=== PATIENT | female | born 1945 | race Caucasian/White ===

== ENCOUNTER → 2017-07-11 | Outpatient (CLI) | payer BC ==
[~2017-07-11] MED LIST: ASCA500 PO; B-COTAB18 PO; CALC-342 PO; CHLO0.12 MT; CHOL2000 PO; CINN500T PO; GLUC750T18 PO; HYDR25TA4 PO; MELO7.5T5 PO; METH1CAP PO; METO50TA17 PO; MULT-506 PO; OMEG10007 PO; OMEP20CA9 PO; POLYSOL OP; RIVA1TAB4 PO; VITA400C15 PO
[2017-07-12 06:08] LABS: ESTIMATED AVERAGE GLUCOSE 134 mg/dl; HA1C FLAG Normal (Normal)
== END | disposition home or self-care (01) ==
LOC: C.LABPVFM 16:02
PROVIDERS: ATTEND Nurse Practitioner
DX: R73.01 Impaired fasting glucose (principal)

== ENCOUNTER → 2017-07-18 | Outpatient (CLI) | payer BC | END | disposition home or self-care (01) | LOC: C.PAPS 09:58 | PROVIDERS: ATTEND Obstetrics & Gynecology | DX: Z01.419 Encounter for gynecological examination (general) (routine) without abnormal findings (principal); N87.1 Moderate cervical dysplasia ==

== ENCOUNTER → 2018-01-20 | Outpatient (CLI) | payer BC ==
--- NOTE | 2018-01-20 16:05 | DIAGNOSTIC IMAGING REPORT ---
L-SPINE MIN 4 VIEWS ROUTINE HISTORY: Pain PAIN OF BACK AND RIGHT LOWER EXTREMITY COMPARISON: None. FINDINGS: Evidence for a L5-S1 laminectomy and fusion. Minimal grade 1 anterolisthesis L5 on S1. Potential osteolysis of components of the superior endplate of S1. Mild degenerative scoliosis. Degenerative disc change throughout all remaining components of the low thoracic and lumbar region. No evidence for compression deformity. IMPRESSION: Considerable degenerative change throughout the entire lumbar region. L5-S1 laminectomy and fusion with disc spacer placement. Probable osteolysis superior endplate S1. The above report was generated using voice recognition software. It may contain grammatical, syntax or spelling errors. Electronically signed by: Arnulfo Atkinson M.D. 01/20/2018 4:04 PM Dictated Date/Time: 01/20/2018 4:02 PM
== END | disposition home or self-care (01) ==
LOC: C.RADPV 15:25
PROVIDERS: ATTEND Family Medicine
DX: M54.9 Dorsalgia, unspecified (principal)

== ENCOUNTER 2019-03-12 05:11 | Inpatient (IN) ==
--- OUTSIDE RECORDS SUMMARY | 2019-03-12 05:14 | External Medical Summary | Continuity of Care Document ---
:1945 Author Name Alina Dunn, Provider Address Unavailable Unavailable , Care Team Providers Name Role Phone Lori Bonilla Unavailable [email or web address] Markus Dunn, Dee Unavailable [email or web address] LORI WANG Unavailable Unavailable Diego Alexandra M.D. Unavailable [email or web address] Shaggy PIERCE M.D., Jessica Unavailable [email or web address] Unavailable Unavailable Unavailable Assessments Assessed Problems:Allergic rhinitisRash/skin eruption Problems Trigeminal neuralgia (350.1) (G50.0) Irritable bowel syndrome (564.1) (K58.9) History of Moderate cervical dysplasia (622.12) (N87.1) Status: Resolved Obesity (278.00) (E66.9) Esophageal reflux (530.81) (K21.9) Influenza vaccine needed (V04.81) (Z23) Paroxysmal atrial fibrillation (427.31) (I48.0) History of Tubular adenoma of colon (211.3) (D12.6) Status: Resolved Hyperlipidemia (272.4) (E78.5) URTI (acute upper respiratory infection) (465.9) (J06.9) Arthralgia, lumbar spine (724.2) (M54.5) Obstructive sleep apnea (327.23) (G47.33) Hip pain, chronic, right (719.45) (M25.551) Sinus pressure (478.19) (J34.89) Discoloration of skin of foot (709.00) (L81.9) Lightheadedness (780.4) (R42) Blurry vision (368.8) (H53.8) Fatigue (780.79) (R53.83) Unsteady gait (781.2) (R26.81) Lumbosacral radiculopathy at L4 (724.4) (M54.17) Pains, foot (729.5) (M79.673) Neuropathic pain, leg, bilateral (356.9) (G57.93) Vitamin D deficiency (268.9) (E55.9) Polyneuropathy (356.9) (G62.9) Hiatal hernia (553.3) (K44.9) Umbilical hernia (553.1) (K42.9) Impaired fasting glucose (790.21) (R73.01) Arthralgia of multiple sites (719.49) (M25.50) Encounter for routine gynecological examination (V72.31) (Z0 1.419) Diverticulosis of colon (562.10) (K57.30) Pain of back and right lower extremity (724.5) (M54.9) Rectocele (618.04) (N81.6) Encounter for medication refill (V68.1) (Z76.0) Rash/skin eruption (782.1) (R21) Allergic rhinitis (477.9) (J30.9) Hypertension (401.9) (I10) Allergies and Adverse Reactions Adhesive Bandages MISC (Allergy) Codeine Derivatives (Allergy) Morphine Derivatives (Allergy) Medications Chlorhexidine Gluconate 0.12 % Mouth/Thr oat Solution; RINSE MOUTH WITH 15ML (1 CAPFUL) FOR 30 SECONDS AM AND PM AFTER TOOTHBRUSHING. EXPECTORATE AFTER RINSING, DO NOT SWALLOW Start: 23-Jan-2016 Refills: 0 GNP Vitamin C 500 MG Oral Tablet; TAKE 1 TABLET 3 TIMES UZMA Y. Refills: 0 B Complex Oral Capsule; TAKE 1 CAPSULE Daily Refills: 0 Meloxicam 7.5 MG Oral Tablet; TAKE ONE TABLET BY MOUTH ONCE DAILY AFTER A MEAL Shaun Aparicio Start: 03-Jan-2013 Quantity: 30 Refills: 5 Loratadine 10 MG Oral Capsule; 1 tab daily for allergies MEL Jovel Start: 09-Jan-2019 Quantity: 30 Refills: 4 Triamcinolone Acetonide 0.1 % External C ream; APPLY SPARINGLY AND MASSAGE IN TWICE DAILY. MEL Wang Start: 09-Jan-2019 Quantity: 1 30 GM Tube Refills: 1 Fluticasone Propionate 50 MCG/ACT Nasal Suspension; USE 2 SPRAYS IN EACH NOSTRIL AT BEDTIME Shaun Aparicio Start: 19-Dec-2018 Quantity: 1 9.9 ML Bottle Refills: 0 Lisinopril 5 MG Oral Tablet; TAKE 1 TABLET IN THE MORNING Start: 19-Dec-2018 Refills: 0 45 Tablet Bottle traMADol HCl - 50 MG Oral Tablet; TAKE 1 -2 TABLETS BY MOUTH 3 TIMES A DAY NEEDED FOR LOWER EXTREMITY PAIN. Shaun Aparicio Start: 20-Jan-2018 Quantity: 30 Refills: 0 Omeprazole 20 MG Oral Capsule Delayed Re lease; TAKE ONE CAPSULE BY MOUTH ONCE DAILY MEL Wang Start: 22-Dec-2012 Quantity: 30 Refills: 5 Metoprolol Tartrate 50 MG Oral Tablet; t estela 1/2 tablet in the am and 1 tablet in the pm Quantity: 60 Refills: 5 Glucosamine-Chondroitin Oral Tablet; Take 1 tablet twice victoria ly Refills: 0 Xarelto 20 MG Oral Tablet; Take 1 tablet daily MEL Wang Start: 11-May-2015 Quantity: 30 Refills: 5 Vitamin D3 2000 UNIT Oral Capsule; Take one capsule daily. Quantity: 30 Refills: 3 Probiotic Oral Capsule; USE DIRECTED. Start: 11-Jul-2017 Refills: 0 traMADol HCl - 50 MG Oral Tablet; TAKE 1 TABLET BY MOUTH EVERY 8 HOURS NEEDED. Start: 21-Aug-2017 Quantity: 30 Refills: 0 oxyCODONE HCl - 5 MG Oral Tablet; TAKE 1 /2 - 1 TABLET EVERY 6 HOURS NEEDED FOR PAIN. Start: 21-Aug-2017 Quantity: 20 Refills: 0 Ondansetron 4 MG Oral Tablet Disintegrating; 1 tab every 8 h rs as needed Start: 21-Aug-2017 Refills: 0 hydroCHLOROthiazide 25 MG Oral Tablet; TAKE 1 TABLET DAILY. Start: 21-Aug-2017 Quantity: 30 Refills: 1 Calcium 600 + D 600-200 MG-UNIT Oral Tablet; TAKE 1 TABLET D AILY. Start: 21-Aug-2017 Refills: 0 Metamucil 48.57 % Oral Powder; USE DIRECTED. Start: 11-Jul-2017 Refills: 0 MSM TABS; once daily Refills: 0 Multi-Vitamin Oral Tablet; TAKE 1 TABLET DAILY. Quantity: 90 Refills: 1 Systane 0.4-0.3 % Ophthalmic Solution; I NSTILL ONE DROP IN EACH EYE NEEDED DAILY. Start: 20-Apr-2016 Refills: 0 Procedures History of Tubal Ligation Status: Comple kingsley History of Dilation And Curettage Status : Completed History of Oral Surgery Tooth Extraction Status: Completed History of Gallbladder Surgery Status: C ompleted History of Cervical Conization Loop Electrode Excision Status: Completed History of Complete Colonoscopy Status: Completed History of Back Surgery Status: Complete d History of Cervical Vertebral Fusion Sta tus: Completed Influenza vaccine needed History of Cataract Surgery Status: Comp leted Immunizations Pneumococcal polysaccharide vaccine, 23 valent On: 1 Influenza On: 12-Sep-2012 11:48 Lot #: [id number], [employer] PASTEUR Influenza On: 28-Aug-2013 11:12 Lot #: [id number], SAN[employer]FI PASTEUR Fluzone High-Dose Intramuscular Suspension On: 13-Aug-2014 8: 39 Lot #: [id number], [employer]OFI PASTEUR Influenza On: 04-Oct-2015 Fluzone High-Dose Intramuscular Suspension On: 01-Oct-2016 1 5:09 Lot #: [id number], [employer]OFI PASTEUR Fluzone High-Dose Intramuscular Suspension On: 30-Jul-2017 1 5:26 Lot #: [id number], SANOFI PASTEUR Prevnar 13 Intramuscular Suspension On: 30-Jul-2017 15:27 Lot #: [id number], PFIZER [place] Fluzone High-Dose Intramuscular Suspension On: 21-Aug-2018 1 5:52 Lot #: [id number], SANOFI PASTEUR Family History Sister Family history of Colon Cancer (V16.0) Status: Active Family history of Coronary Artery Disease (V17.49) Status: A ctive Family history of Coronary Artery Disease (V17.49) Status: A ctive Family history of cerebrovascular accident (V17.1) (Z82.3) S tatus: Active Social History - Smoking Status Unknown if ever smoked Never smoker Interventions Medication ChangesLoratadine 10 MG Oral Capsule - StartTriamcinolone Acetonide 0.1 % External Cream - Start Plan of Treatment Planned Observations Planned Goals not documented Results No Known Results Results not documented Encounters Appointment; Dee Aparicio M.D. 19-Dec-2018 16:00 Encounter Diagnosis: Problem not documented Appointment; Nurse Luis E 21-Aug-2018 14:15 Encounter Diagnosis: Problem not documented Appointment; Dee Aparicio M.D. 20-Jan-2018 14:45 Encounter Diagnosis: Problem not documented Appointment; Nurse Luis E 30-Jul-2017 15:00 Encounter Diagnosis: Problem not documented Appointment; Ary Alexandra M.D. 18-Jul-2017 13:45 Encounter Diagnosis: Problem not documented Appointment; Lori Wang CRNP 11-Jul-2017 15:30 Encounter Diagnosis: Problem not documented Appointment; Lori Wang CRNP 09-Jan-2019 13:00 Encounter Diagnosis: Problem not documented
[2019-03-12 05:53] LABS: Basophils # (auto) 0.03 K/uL (0-0.2); Basophils % (auto) 0.6 %; Eosinophils # (auto) 0.12 K/uL (0-0.5); Eosinophils % (auto) 2.2 %; Hematocrit (blood only) 41.2 % (37-47); Hemoglobin 14.7 g/dL (12.0-16.0); Immature Granulocytes # (auto) 0.01 K/uL (0.00-0.02); Immature Granulocytes % (auto) 0.2 %; Lymphocytes % (auto) 40.8 %; Mean Corpuscular Hgb Conc 35.7 g/dL (32-36); Mean Corpuscular Volume 87.5 fL (80-100); Mean Platelet Volume 9.6 fL (7.4-10.4); Monocytes # (auto) 0.58 K/uL (0.11-0.59); Monocytes % (auto) 10.8 %; Neutrophils # (auto) 2.45 K/uL (1.4-6.5); Neutrophils % (auto) 45.4 %; Platelet Count 239 K/uL (130-400); RDW Coefficient of Variation 13.2 % (11.5-14.5); RDW Standard Deviation 42.3 fL (36.4-46.3); Red Blood Count 4.71 M/uL (4.2-5.4); White Blood Count 5.39 K/uL (4.8-10.8)
[2019-03-12 06:03] LABS: INR 1.1 (0.9-1.1); Partial Thromboplastin Ratio 1.1; Partial Thromboplastin Time 29.1 Seconds (21.0-31.0); Prothrombin Time 11.2 Seconds (9.0-12.0)
[2019-03-12 06:07] LABS: Albumin Level 3.7 gm/dl (3.4-5.0); Aspartate Aminotransferase 19 U/L (15-37); BUN Creatinine Ratio 17.8 (10-20); Blood Urea Nitrogen 19 mg/dl (7-18); Calcium 9.3 mg/dl (8.5-10.1); Carbon Dioxide 28 mmol/L (21-32); Chloride 103 mmol/L (98-107); Creatinine Clr Calc Pharmacy 55.2 ml/min; Est GFR (African American) 59.9; Est GFR (Non-African American) 51.7; Glucose 132 mg/dl (70-99); Magnesium 2.1 mg/dl (1.8-2.4); Potassium 3.8 mmol/L (3.5-5.1); Sodium 137 mmol/L (136-145)
[2019-03-12 06:22] LABS: Alanine Aminotransferase 26 U/L (12-78); Alkaline Phosphatase 54 U/L (45-117); Bilirubin,Total 0.3 mg/dl (0.2-1); Globulin 3.6 gm/dl (2.5-4.0); Total Protein 7.3 gm/dl (6.4-8.2); Troponin I < 0.015 ng/ml (0-0.045)
[2019-03-12] MEDS ORDERED: METOPROLOL TARTRATE 1 MG/ML VIAL IV STA (06:26)
--- NOTE | 2019-03-12 06:28 | XRay Report ---
XR chest 1V portable CLINICAL HISTORY: chest pain/palpitations dyspnea COMPARISON STUDY: 11/04/2015 FINDINGS: Moderate cardiomegaly. Lungs are clear. Diaphragms smooth. IMPRESSION: Moderate cardiomegaly. Otherwise negative study. The above report was generated using voice recognition software. It may contain grammatical, syntax or spelling errors. Electronically signed by: Arnulfo Atkinson M.D. 03/12/2019 6:27 AM
[2019-03-12 07:22] LABS: Appearance Urine Clear (Clear); Bilirubin Urine Negative (Negative); Blood Urine Negative (Negative); Color Urine Yellow; Glucose Urine UA Negative (Negative); Ketones Urine Negative (Negative); Leukocyte Esterase Urine Negative (Negative); Nitrite Urine Negative (Negative); Protein Urine Negative (Negative); Specific Gravity Urine 1.011 (1.000-1.030); Urobilinogen Urine Negative (Negative); pH Urine 7.5 (4.5-7.5)
[2019-03-12] MEDS: dilTIAZem HCl 125 MG in DEXTROSE 5% 100 ML IV SCH ×2 (07:44→19:58)
[2019-03-12] MEDS ORDERED: ONDANSETRON INJ 2 MG/ML 2 ML VIAL IV PRN (09:25)
[2019-03-12] MEDS ORDERED: ARTIFICIAL TEARS OP PRN (09:25)
[2019-03-12] MEDS ORDERED: GLUCOSAMINE SULFATE 1500 MG PO SCH (09:25)
[2019-03-12] MEDS ORDERED: ACETAMINOPHEN 325 MG TAB PO PRN (09:25)
[2019-03-12] MEDS ORDERED: CHONDROITIN SULFATE A SODIUM 1200 MG PO SCH (09:25)
[2019-03-12] MEDS ORDERED: METHYLSULFONYLMETHANE 1000 MG PO SCH (09:25)
[2019-03-12] MEDS ORDERED: NON-FORMULARY MEDICATION (Cinnamon Bark [Cinnamon] 1,000 MG) PO SCH (09:25)
--- NOTE | 2019-03-12 09:38 | History & Physical Report ---
Date of Service March 12, 2019 Assessment & Plan (1) Atrial flutter: has a long history of afib, rates controlled on Metoprolol 25mg qAM and 50mg qPM anticoagulated on Xarelto presents with aflutter, rates 135-140 awoke at 4am with symptoms, felt well yesterday experienced some chest pain, palpitations this morning started on Cardizem drip, will give bolus of 10mg IV since HR is 140 and not budging had some mild chest pain, will cycle troponin q8 x 2 more sets, first trop was negative (2) Palpitations: due to aflutter (3) HTN (hypertension): BP stable, will continue Metoprolol and Cardizem drip hold HCTZ, hold Lisinopril (4) Afib: afib x 10 years, this is only the 4th time she has been hospitalized follows with Dr. Alex chronically (5) GERD (gastroesophageal reflux disease): History of Present Illness Chief Complaint: I was having palpitations Primary Care Provider: MEL Leigh 73 yo female with history of atrial fibrillation, normally well controlled on metoprolol and anticoagulated on Xarelto, presented to the ED this morning for palpitations and some mild chest pressure. She said she also experienced some light headedness. She says she woke up with the symptoms around 4am. She felt well yesterday, no issues at all. She waited until 430 and the palpitations did not go away so she woke her and he brought her to the ED. She was found to be in atrial flutter with rates 135-140. She was given an extra dose of metoprolol and started on Cardizem drip. HR did not improve. Dr. Alex, her commodity loan clerk, was contacted and he recommended admission. Patient says that she has had atrial fibrillation since 2008. Typically very well controlled, only fourth time she has been hospitalized for rate control in the past 10 years. Compliant with her medications. Allergies Allergy/AdvReac Type Severity Reaction Status Date / Time adhesive Allergy Mild redness/swe Verified 03/12/19 05:42 lling codeine Allergy Mild vomiting Unverified 03/12/19 05:42 morphine Allergy Mild Vomiting Verified 03/12/19 05:42 Home Medications Home Medications Medication Instructions Recorded Confirmed Type Womens Probiotic 1 dose PO DAILY 03/12/19 03/12/19 History ascorbic acid (vitamin C) [Vitamin 1,000 mg PO TID 03/12/19 03/12/19 History C] calcium carbonate-vitamin D3 1 tab PO BID 03/12/19 03/12/19 History [Caltrate with Vitamin D3] chlorhexidine gluconate 15 ml PO HS 03/12/19 03/12/19 History cholecalciferol (vitamin D3) 2,000 unit PO DAILY 03/12/19 03/12/19 History [Vitamin D3] chondroitin sulfate A sodium 1,200 mg PO BID 03/12/19 03/12/19 History cinnamon bark [Cinnamon] 1,000 mg PO TID 03/12/19 03/12/19 History glucosamine sulfate [Glucosamine] 1,500 mg PO BID 03/12/19 03/12/19 History hydrochlorothiazide 25 mg PO DAILY 03/12/19 03/12/19 History lidocaine HCl [Aspercreme 1 applic TOPICAL BID PRN 03/12/19 03/12/19 History (lidocaine)] lisinopril 5 mg PO DAILY 03/12/19 03/12/19 History meloxicam 7.5 mg PO DAILY 03/12/19 03/12/19 History methylsulfonylmethane [MSM] 1,000 mg PO DAILY 03/12/19 03/12/19 History metoprolol tartrate 25 mg PO DAILY 03/12/19 03/12/19 History metoprolol tartrate 50 mg PO QPM 03/12/19 03/12/19 History multivitamin 1 tab PO DAILY 03/12/19 03/12/19 History omega 2-krb-uri-fish oil [Fish Oil] 1 cap PO DAILY 03/12/19 03/12/19 History omeprazole 20 mg PO DAILY 03/12/19 03/12/19 History propylene glycol [Systane Balance] 1 drp OPHTHALMIC (EYE) BID PRN 03/12/19 03/12/19 History psyllium husk [Metamucil] 2 tbsp PO HS 03/12/19 03/12/19 History rivaroxaban [Xarelto] 20 mg PO PM 03/12/19 03/12/19 History vitamin B complex 1 cap PO DAILY 03/12/19 03/12/19 History vitamin E 400 unit PO DAILY 03/12/19 03/12/19 History Past Med/Surg History Medical History Atrial flutter (Acute) GERD (gastroesophageal reflux disease) (Chronic) Chronic anticoagulation on xarelto Hiatal hernia Sleep apnea with cpap Spinal stenosis Vocal cord polyp Atrial fibrillation paroxysmal atrial fibrillation in 2009, 01/2015 and 10/2015 HTN (hypertension) Non-smoker Surgical History No pertinent past surgical history S/P hip replacement right Family History Sister Hemorrhagic stroke Mother Hemorrhagic stroke Social History Preferred Language: Martiniquais Communication Ability: Effective [employer]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 Beliefs That Will Affect Care: None Current Living Situation: Spouse Other Information That Helps Us Care for You: No Feels Safe at Home: Yes Safety Concerns: Feels Safe At This Time Smoking Status: Never smoker Hx Alcohol Use: No Hx Substance Use: No Review of Systems Review of Systems: All systems reviewed & are unremarkable except as noted in HPI & below Constitutional: no fever, no chills, no sweats, no fatigue and no weakness Respiratory: no cough and no dyspnea Cardiovascular: + chest pain and + palpitations; no chest pain at rest, no chest pain with activity, no dyspnea, no dyspnea at rest, no orthopnea, no syncope and no edema Gastrointestinal: no abdominal pain, no nausea, no vomiting, no constipation and no diarrhea/loose stools Genitourinary: no dysuria, no difficulty urinating, no urinary frequency, no urinary hesitancy and no urinary urgency Musculoskeletal: no back pain and no neck pain Physical Exam Constitutional: WD/WN, vitals as above Eyes: PERRL, conjunctivae normal, anicteric sclerae ENMT: external ear and nose normal, oropharynx normal Neck: trachea midline, no thyromegaly Respiratory: normal respiratory effort, lungs clear to auscultation Cardiovascular: Rate/Rhythm: regular rate and + tachycardic Heart Sounds: normal S1 and normal S2; no murmur Vessels: normal peripheral pulses Extremities: no edema Gastrointestinal (Abdomen): normal bowel sounds, soft, nontender, no hepatosplenomegaly Musculoskeletal: no cyanosis or clubbing, extremities motor strength 5/5 Skin: no rashes, warm and dry Neurologic: patellar DTR's 2+ bilat, sensation intact and PERRL, EOMI, accommodation nl, no face palsy, no dysarthria Psychiatric: A+Ox3, euthymic affect Lymphatic: no cervical or axillary lymphadenopathy Results & Data Vital Signs (Past 12 Hours) Vital Signs Temp Pulse Pulse Resp BP BP Pulse Ox 03/12/19 08:18 133 H 20 111/78 96 03/12/19 07:43 137 H 20 123/76 95 03/12/19 07:31 136 H 15 123/76 95 03/12/19 07:30 136 H 15 94 03/12/19 07:16 135 H 13 116/86 96 03/12/19 07:01 135 H 23 115/85 96 03/12/19 07:00 134 H 133 H 23 115/85 96 03/12/19 06:51 135 H 16 119/92 96 03/12/19 06:50 133 H 18 119/92 95 03/12/19 06:48 135 H 135 H 19 121/94 121/94 95 03/12/19 06:45 137 H 135 H 19 130/97 130/97 96 03/12/19 06:31 137 H 17 128/87 95 03/12/19 06:30 136 H 20 94 03/12/19 06:00 136 H 15 96 03/12/19 05:35 95 03/12/19 05:32 135 H 15 94 03/12/19 05:31 136 H 16 141/92 H 93 03/12/19 05:25 134 H 20 150/92 H 94 03/12/19 05:22 36.5 C 135 H 19 150/92 H 95 Laboratory Results Laboratory Results - last 24 hr 03/12/19 03/12/19 03/12/19 05:21 05:21 05:21 WBC 5.39 RBC 4.71 Hgb 14.7 Hct 41.2 MCV 87.5 MCH 31.2 MCHC 35.7 RDW Std Deviation 42.3 RDW Coeff of Eboni 13.2 Plt Count 239 MPV 9.6 Immature Gran % (Auto) 0.2 Neut % (Auto) 45.4 Lymph % (Auto) 40.8 [place] % (Auto) 10.8 Eos % (Auto) 2.2 Baso % (Auto) 0.6 Immature Gran # (Auto) 0.01 Neut # (Auto) 2.45 Lymph # (Auto) 2.20 [place] # (Auto) 0.58 Eos # (Auto) 0.12 Baso # (Auto) 0.03 PT 11.2 INR 1.1 APTT 29.1 PTT Ratio 1.1 Sodium 137 Potassium 3.8 Chloride 103 Carbon Dioxide 28 Anion Gap 6.0 BUN 19 H Creatinine 1.06 Est Cr Clr Drug Dosing 55.2 Est GFR ( Amer) 59.9 Est GFR (Non-Af Amer) 51.7 BUN/Creatinine Ratio 17.8 Glucose 132 H Calcium 9.3 Magnesium 2.1 Total Bilirubin 0.3 AST 19 ALT 26 Alkaline Phosphatase 54 Troponin I < 0.015 Total Protein 7.3 Albumin 3.7 Globulin 3.6 Albumin/Globulin Ratio 1.0 Lipase 294 TSH 2.370 Specimen Hemolysis Urine Color Urine Appearance Urine pH Ur Specific [place] Urine Protein Urine Glucose (UA) Urine Ketones Urine Blood Urine Nitrite Urine Bilirubin Urine Urobilinogen Ur Leukocyte Esterase 03/12/19 06:54 WBC RBC Hgb Hct MCV MCH MCHC RDW Std Deviation RDW Coeff of Eboni Plt Count MPV Immature Gran % (Auto) Neut % (Auto) Lymph % (Auto) [place] % (Auto) Eos % (Auto) Baso % (Auto) Immature Gran # (Auto) Neut # (Auto) Lymph # (Auto) [place] # (Auto) Eos # (Auto) Baso # (Auto) PT INR APTT PTT Ratio Sodium Potassium Chloride Carbon Dioxide Anion Gap BUN Creatinine Est Cr Clr Drug Dosing Est GFR ( Amer) Est GFR (Non-Af Amer) BUN/Creatinine Ratio Glucose Calcium Magnesium Total Bilirubin AST ALT Alkaline Phosphatase Troponin I Total Protein Albumin Globulin Albumin/Globulin Ratio Lipase TSH Specimen Hemolysis Urine Color Yellow Urine Appearance Clear Urine pH 7.5 Ur Specific [place] 1.011 Urine Protein Negative Urine Glucose (UA) Negative Urine Ketones Negative Urine Blood Negative Urine Nitrite Negative Urine Bilirubin Negative Urine Urobilinogen Negative Ur Leukocyte Esterase Negative Diagnostic Findings XR chest 1V portable CLINICAL HISTORY: chest pain/palpitations dyspnea COMPARISON STUDY: 11/04/2015 FINDINGS: Moderate cardiomegaly. Lungs are clear. Diaphragms smooth. IMPRESSION: Moderate cardiomegaly. Otherwise negative study. Code Status & VTE Plan Code Status full code VTE Prophylaxis Plan VTE Prophylaxis will be ordered: Yes (1) Atrial flutter Atrial flutter type: unspecified Qualified Code(s): I48.92 - Unspecified atrial flutter (2) HTN (hypertension) Hypertension type: essential hypertension Qualified Code(s): I10 - Essential (primary) hypertension
[2019-03-12] MEDS ORDERED: dilTIAZem HCl 5 MG/ML 5 ML VIAL IV STA (09:55)
[2019-03-12] MEDS: SACCHAROMYCES BOULARDII 250 MG CAP PO SCH (11:21)
[2019-03-12] MEDS: MELOXICAM 7.5 MG TAB PO SCH (11:21)
[2019-03-12] MEDS: PANTOprazole 40 MG TAB PO SCH (11:21)
[2019-03-12] MEDS: ASCORBIC ACID 500 MG TAB PO SCH ×2 (11:21→17:50)
[2019-03-12] MEDS: CHOLECALCIFEROL 1,000 UNITS TAB PO SCH (11:21)
[2019-03-12] MEDS: TOCOPHERYL, DL-ALPHA 400 UNITS CAP PO SCH (11:22)
[2019-03-12] MEDS: LISINOPRIL 5 MG TAB PO SCH (11:22)
[2019-03-12] MEDS: METOPROLOL TARTRATE 25 MG TAB PO SCH (11:22)
[2019-03-12] MEDS: OMEGA-3 (PURIFIED FISH OIL) 1 GM CAP PO SCH (11:22)
[2019-03-12] MEDS: VITAMIN B COMPLEX TAB PO SCH (11:22)
--- NOTE | 2019-03-12 11:57 | Consultation Report ---
DATE OF CONSULTATION: 03/12/2019 REQUESTING: Rodri Barker DO. CONTRACT CLERK: Familia Alex DO, [facility]. REASON FOR CONSULTATION: New onset atrial flutter. Dear Dahiana Mace for requesting Cardiology consultation on the patient with regards to her atrial flutter. She has had a history of paroxysmal atrial fibrillation last in 10/2015, but since then has done well on AV elana blockers. She additionally is on anticoagulation and has tolerated her anticoagulation with Xarelto without any issues. She notes she woke last evening. She had some mild jaw discomfort and tooth discomfort. When she awoke, she realized that her heart was racing. She waited half hour. It did not break on its own. She woke her and then they came to the Emergency Room. In the ER, she is found to be in atrial flutter with rates in the 130s-140s. At this point, she has no shortness of breath or neck or chest discomfort. She is unaware really of any palpitations currently, even though her rate is 140 beats per minute. She denies any presyncope, syncope, lower extremity edema, symptoms of claudication. She denies any bleeding, bruising, dark stools, black stools, fevers, chills, sweats, cough, productive sputum and before last night's episode, she has been relatively stable and her functional capacity has been stable. The rest of review of systems is otherwise negative. PAST MEDICAL HISTORY: 1. Negative stress echo for ischemia in 06/2014 at 75% of maximum predicted for her age. 2. Hypertension. 3. History of paroxysmal atrial fibrillation in 2009, 01/2015 and 10/2015. 4. Single episode of atrial flutter, 03/2019. 5. Hypertension. 6. Chronic anticoagulation with Xarelto. 7. Spinal stenosis. 8. DJD. 9. GERD. 10. History of shingles. 11. History of vocal cord polyp. 12. Type 2 diastolic dysfunction. 13. Severe obstructive sleep apnea, tolerating CPAP. 14. Right total hip replacement in 02/2016 at [facility]. 15. Moderate to large size hiatal hernia prolapsing through her previous lap Rogelio surgery. 16. Large umbilical hernia. ALLERGIES: PERCOCET, DARVOCET, CODEINE, MORPHINE AND TAPE. MEDICATIONS: Reviewed in electronic medical record. SOCIAL HISTORY: She is retired from the insurance industry. She denies any tobacco or alcohol. She is . FAMILY HISTORY: Positive for premature heart disease. Her sisters all have diabetes. PHYSICAL EXAMINATION: GENERAL: She is awake, alert, oriented x3. She is in no acute distress. She is answering questions appropriately. VITAL SIGNS: Her heart rate is 139 beats per minute, blood pressure 134/78, her respirations are 20, her sats are 94% on room air. HEENT: Her carotid upstrokes could not be felt due to her fast heart rate. Her sclerae are anicteric. There were no carotid bruits. Her hearing is normal. LUNGS: Clear to auscultation bilaterally. No rales, rhonchi, wheezing. HEART: Tachycardic (regular). No appreciable murmurs, rubs or gallops. ABDOMEN: Soft, nontender, nondistended. Positive bowel sounds. EXTREMITIES: No clubbing, cyanosis or edema. PSYCHIATRIC: Her affect appeared appropriate. NEUROLOGIC: She is grossly nonfocal. DIAGNOSTIC STUDIES: Chest x-ray: Moderate cardiomegaly, no heart failure. EKG: Atrial flutter with a rapid ventricular response at 130 beats per minute, nonspecific ST-T changes. LABORATORY STUDIES: Her CBC is normal. Her BMP is normal with the exception of her glucose to 132. Her troponin is negative. Her TSH is normal. IMPRESSION: 1. New onset atrial flutter with a rapid ventricular response. 2. History of paroxysmal atrial fibrillation, on chronic Xarelto. 3. Preserved left ventricular systolic function. 4. Negative stress test in 06/2014. 5. Hypertension. 6. Severe obstructive sleep apnea, tolerating CPAP. As I discussed with the patient, she appears to be in atrial flutter. It is unlikely she will convert with diltiazem. She did eat this morning. At this point, we will keep her n.p.o. after midnight and plan for elective cardioversion tomorrow in the supervisor laboratory. I did contact the supervisor laboratory to arrange this. We are waiting to hear if anesthesia can provide sedation in the 8:00 a.m. time frame. I discussed the risks and benefits of cardioversion. Risks including but not limited to low heart rates, fast heart rates, low blood pressure, high blood pressure, stroke, or heart attack were discussed. In addition, we discussed a small chance of skin sanders. I discussed that the other option is to remain on diltiazem if she does not convert tomorrow morning through the weekend and if she does not convert, she could then be cardioverted on Saturday if she was against cardioversion. At this point, she seems agreeable to proceed with cardioversion tomorrow. Depending on her heart rate after cardioversion and her blood pressure, we can try to up titrate her beta blockers. In addition, at that point, we can discuss antiarrhythmic therapy as she notes she has gone 4-1/2 years without any recurrent atrial arrhythmias and therefore is reluctant to consider antiarrhythmic therapy. Thank you for allowing us to participate in her care. All this was discussed with the primary service as well.
--- NOTE | 2019-03-12 12:35 | Anesthesiology Consultation ---
Date of Service March 12, 2019 Assessment & Plan (1) Encounter for pre-operative examination: Chart Review Chart Review: Acceptable Risk for Surgery, Patient NOT seen in Pre Admission Testing and entry level initiated Consults Requested cardiac (cardiology involved in the care of this patient ) History Height/Weight Height: 5 ft 3 in Weight: 109 kg Allergies Allergy/AdvReac Type Severity Reaction Status Date / Time adhesive Allergy Mild redness/swe Verified 03/12/19 05:42 lling codeine Allergy Mild vomiting Unverified 03/12/19 05:42 morphine Allergy Mild Vomiting Verified 03/12/19 05:42 Medications Home Medications Medication Instructions Recorded Confirmed Last Taken Womens Probiotic 1 dose PO DAILY 03/12/19 03/12/19 Unknown ascorbic acid (vitamin C) [Vitamin 1,000 mg PO TID 03/12/19 03/12/19 Unknown C] calcium carbonate-vitamin D3 1 tab PO BID 03/12/19 03/12/19 Unknown [Caltrate with Vitamin D3] chlorhexidine gluconate 15 ml PO HS 03/12/19 03/12/19 Unknown cholecalciferol (vitamin D3) 2,000 unit PO DAILY 03/12/19 03/12/19 Unknown [Vitamin D3] chondroitin sulfate A sodium 1,200 mg PO BID 03/12/19 03/12/19 Unknown cinnamon bark [Cinnamon] 1,000 mg PO TID 03/12/19 03/12/19 Unknown glucosamine sulfate [Glucosamine] 1,500 mg PO BID 03/12/19 03/12/19 Unknown hydrochlorothiazide 25 mg PO DAILY 03/12/19 03/12/19 Unknown lidocaine HCl [Aspercreme 1 applic TOPICAL BID PRN 03/12/19 03/12/19 Unknown (lidocaine)] lisinopril 5 mg PO DAILY 03/12/19 03/12/19 Unknown meloxicam 7.5 mg PO DAILY 03/12/19 03/12/19 Unknown methylsulfonylmethane [MSM] 1,000 mg PO DAILY 03/12/19 03/12/19 Unknown metoprolol tartrate 25 mg PO DAILY 03/12/19 03/12/19 Unknown metoprolol tartrate 50 mg PO QPM 03/12/19 03/12/19 Unknown multivitamin 1 tab PO DAILY 03/12/19 03/12/19 Unknown omega [id number]-fish oil [Fish Oil] 1 cap PO DAILY 03/12/19 03/12/19 Unknown omeprazole 20 mg PO DAILY 03/12/19 03/12/19 Unknown propylene glycol [Systane Balance] 1 drp OPHTHALMIC (EYE) BID PRN 03/12/19 03/12/19 Unknown psyllium husk [Metamucil] 2 tbsp PO HS 03/12/19 03/12/19 Unknown rivaroxaban [Xarelto] 20 mg PO PM 03/12/19 03/12/19 Unknown vitamin B complex 1 cap PO DAILY 03/12/19 03/12/19 Unknown vitamin E 400 unit PO DAILY 03/12/19 03/12/19 Unknown Active Medications Generic Name Dose Route Start Last Admin Trade Name Freq PRN Reason Stop Dose Admin Ascorbic Acid 1,000 mg 03/12/19 12:00 03/12/19 11:21 Vitamin C PO 04/11/19 11:59 1,000 mg TIDM ROSSANA Administration Fish Oil 1 gm 03/12/19 10:00 03/12/19 11:22 [place]-3 (Purified Fish Oil) PO 04/11/19 09:59 1 gm DAILY ROSSANA Administration Diltiazem HCl 125 mg/ Dextrose 125 mls @ 5 mls/hr 03/12/19 07:30 03/12/19 07:44 IV 04/11/19 07:29 5 mg/hr .Q24H ROSSANA 5 mls/hr Administration Protocol 5 MG/HR Lisinopril 5 mg 03/12/19 10:00 03/12/19 11:22 Zestril PO 04/11/19 09:59 5 mg DAILY ROSSANA Administration Meloxicam 7.5 mg 03/12/19 10:00 03/12/19 11:21 Mobic PO 04/11/19 09:59 7.5 mg DAILY ROSSANA Administration Metoprolol Tartrate 25 mg 03/12/19 10:00 03/12/19 11:22 Lopressor PO 04/11/19 09:59 25 mg DAILY ROSSANA Administration Pantoprazole Sodium 40 mg 03/12/19 10:00 03/12/19 11:21 Protonix PO 04/11/19 09:59 40 mg DAILY ROSSANA Administration Saccharomyces Boulardii 250 mg 03/12/19 10:00 03/12/19 11:21 Florastor PO 04/11/19 09:59 250 mg DAILY ROSSANA Administration Vitamin B Complex 1 tab 03/12/19 10:00 03/12/19 11:22 Vitamin B Complex PO 04/11/19 09:59 1 tab DAILY ROSSANA Administration Vitamin D 2,000 units 03/12/19 10:00 03/12/19 11:21 Vitamin D3 PO 04/11/19 09:59 2,000 units DAILY ROSSANA Administration Vitamin E 400 units 03/12/19 10:00 03/12/19 11:22 Vitamin E PO 04/11/19 09:59 400 units DAILY ROSSANA Administration Past Medical History Medical History Atrial flutter (Acute) GERD (gastroesophageal reflux disease) (Chronic) Chronic anticoagulation on xarelto Hiatal hernia Sleep apnea with cpap Spinal stenosis Vocal cord polyp Atrial fibrillation paroxysmal atrial fibrillation in 2009, 01/2015 and 10/2015 HTN (hypertension) Non-smoker Past Family History Family History Sister Hemorrhagic stroke Mother Hemorrhagic stroke Past Surgical History Surgical History No pertinent past surgical history S/P hip replacement right Social History Smoking Status: Never smoker Physical Exam Vital Signs Last Vital Signs Temp 36.6 C 03/12/19 10:50 Pulse 139 H 03/12/19 10:50 Resp 20 03/12/19 10:50 BP 134/78 03/12/19 10:50 Pulse Ox 94 03/12/19 10:50 Testing Electrocardiogram Date: 03/12/[address] and T wave abnormality Abnormal ECG When compared with ECG of 13-NOV-2018 20:42, Vent. rate has increased BY [address] now depressed in Inferior leads ST now depressed in Anterolateral leads Nonspecific T wave abnormality now evident in Lateral leads tachycardia 130 Chest X-Ray Date: 03/12/19 XR chest 1V portable CLINICAL HISTORY: chest pain/palpitations dyspnea COMPARISON STUDY: 11/04/2015 FINDINGS: Moderate cardiomegaly. Lungs are clear. Diaphragms smooth. IMPRESSION: Moderate cardiomegaly. Otherwise negative study. Echocardiogram Negative stress echo for ischemia in 06/2014 at 75% of maximum predicted for her age. Laboratory Results 03/12/19 05:21 03/12/19 05:21 PT 11.2 Seconds (9.0-12.0) 03/12/19 05:21 INR 1.1 (0.9-1.1) 03/12/19 05:21 APTT 29.1 Seconds (21.0-31.0) 03/12/19 05:21 Urine Color Yellow 03/12/19 06:54 Urine Appearance Clear (Clear) 03/12/19 06:54 Urine pH 7.5 (4.5-7.5) 03/12/19 06:54 Ur Specific [place] 1.011 (1.000-1.030) 03/12/19 06:54 Urine Protein Negative (Negative) 03/12/19 06:54 Urine Glucose (UA) Negative (Negative) 03/12/19 06:54 Urine Ketones Negative (Negative) 03/12/19 06:54 Urine Nitrite Negative (Negative) 03/12/19 06:54 Ur Leukocyte Esterase Negative (Negative) 03/12/19 06:54
[2019-03-12] MEDS: CALCIUM 600MG + VIT D 400 IU TAB PO SCH (20:50)
[2019-03-12] MEDS ORDERED: CHLORHEXIDINE GLUCONATE 0.12% 480 ML MT SCH (21:00)
[2019-03-12] MEDS ORDERED: METOPROLOL TARTRATE 50 MG TAB PO SCH (21:00)
[2019-03-12] MEDS ORDERED: PSYLLIUM 58.6% POWDER PACKET PO SCH (21:00)
[2019-03-12] MEDS ORDERED: RIVAROXABAN 20 MG TAB PO SCH (21:00)
[2019-03-13 04:12] LABS: Hemoglobin 14.2 g/dL (12.0-16.0); Mean Corpuscular Hgb Conc 36.4 g/dL (32-36); Mean Corpuscular Volume 87.4 fL (80-100); Mean Platelet Volume 9.3 fL (7.4-10.4); Platelet Count 226 K/uL (130-400); RDW Coefficient of Variation 13.2 % (11.5-14.5); RDW Standard Deviation 42.4 fL (36.4-46.3); Red Blood Count 4.46 M/uL (4.2-5.4); White Blood Count 6.56 K/uL (4.8-10.8)
[2019-03-13 04:32] LABS: BUN Creatinine Ratio 21.2 (10-20); Creatinine Clr Calc Pharmacy 59.4 ml/min; Est GFR (African American) 65.9; Est GFR (Non-African American) 56.8
[2019-03-13 04:36] LABS: Troponin I 0.457 ng/ml (0-0.045)
--- NOTE | 2019-03-13 05:47 | Emergency Department Note ---
Entered by Jose Alberto Chakraborty acting as a scribe for Indira Maynard DO History of Present Illness General Chief complaint: Cardiac Assessment Stated complaint: CHEST DISCOMFORT,HIGH BLOOD PRESSURE Time Seen by Provider: 03/12/19 05:18 Source: patient History of Present Illness Onset (ago): hour(s) 2 Location: chest Pain Consistency: + constant Maximum Pain Intensity: 3 Quality: + other (palpitations) Associated symptoms: + headaches and + other (tingling in arms, pain in her teeth); no cough and no fever/chills The patient is a 73 y/o female who presents to the ED w/ CC of constant palpitations beginning 2 hours ago. The patient states she woke up this morning with palpations, tingling in her arms, a headache, and pain in her teeth. She reports she has a history of a-fib, and these are similar symptoms she experienced when she was diagnosed with a-fib the first time. The patient notes she is not always in a-fib, and she can normally tell when she is in it because she gets palpitations. She states she also always has a pounding sensation in her chest. The patient reports she was here in November for HTN and followed up with her echocardiography radiology technologist, Dr. Alex. She notes she has never been told her symptoms were a-flutter. The patient states she is staying hydrated and on Xarelto for a-fib. She reports her last echocardiogram is unknown. The patient notes when she was first diagnoses with a-fib it was hard to get under control. She denies having a trigger to send her into a-fib, changes in her diet in the past two days, recent illness, cough, chills, fevers, a history of thyroid issues, drinking caffeine regularly, alcohol use, changes in medication, and being shocked out of a-fib. Home Medications Home Medications Medication Instructions Recorded Confirmed Type Womens Probiotic 1 dose PO DAILY 03/12/19 03/12/19 History ascorbic acid (vitamin C) [Vitamin 1,000 mg PO TID 03/12/19 03/12/19 History C] calcium carbonate-vitamin D3 1 tab PO BID 03/12/19 03/12/19 History [Caltrate with Vitamin D3] chlorhexidine gluconate 15 ml PO HS 03/12/19 03/12/19 History cholecalciferol (vitamin D3) 2,000 unit PO DAILY 03/12/19 03/12/19 History [Vitamin D3] chondroitin sulfate A sodium 1,200 mg PO BID 03/12/19 03/12/19 History cinnamon bark [Cinnamon] 1,000 mg PO TID 03/12/19 03/12/19 History glucosamine sulfate [Glucosamine] 1,500 mg PO BID 03/12/19 03/12/19 History hydrochlorothiazide 25 mg PO DAILY 03/12/19 03/12/19 History lidocaine HCl [Aspercreme 1 applic TOPICAL BID PRN 03/12/19 03/12/19 History (lidocaine)] lisinopril 5 mg PO DAILY 03/12/19 03/12/19 History meloxicam 7.5 mg PO DAILY 03/12/19 03/12/19 History methylsulfonylmethane [MSM] 1,000 mg PO DAILY 03/12/19 03/12/19 History metoprolol tartrate 25 mg PO DAILY 03/12/19 03/12/19 History metoprolol tartrate 50 mg PO QPM 03/12/19 03/12/19 History multivitamin 1 tab PO DAILY 03/12/19 03/12/19 History omega [id number] oil [Fish Oil] 1 cap PO DAILY 03/12/19 03/12/19 History omeprazole 20 mg PO DAILY 03/12/19 03/12/19 History propylene glycol [Systane Balance] 1 drp OPHTHALMIC (EYE) BID PRN 03/12/19 03/12/19 History psyllium husk [Metamucil] 2 tbsp PO HS 03/12/19 03/12/19 History rivaroxaban [Xarelto] 20 mg PO PM 03/12/19 03/12/19 History vitamin B complex 1 cap PO DAILY 03/12/19 03/12/19 History vitamin E 400 unit PO DAILY 03/12/19 03/12/19 History Allergies Allergy/AdvReac Type Severity Reaction Status Date / Time adhesive Allergy Mild redness/swe Verified 03/12/19 05:42 lling codeine Allergy Mild vomiting Unverified 03/12/19 05:42 morphine Allergy Mild Vomiting Verified 03/12/19 05:42 Past Med/Surg History Medical History Atrial flutter (Acute) GERD (gastroesophageal reflux disease) (Chronic) Chronic anticoagulation on xarelto Hiatal hernia Sleep apnea with cpap Spinal stenosis Vocal cord polyp Atrial fibrillation paroxysmal atrial fibrillation in 2009, 01/2015 and 10/2015 HTN (hypertension) Non-smoker Surgical History No pertinent past surgical history S/P hip replacement right Family History Sister Hemorrhagic stroke Mother Hemorrhagic stroke Social History Preferred Language: Kinyarwanda Communication Ability: Effective Machine Presser Required: No Beliefs That Will Affect Care: None Current Living Situation: Spouse Other Information That Helps Us Care for You: No Feels Safe at Home: Yes Safety Concerns: Feels Safe At This Time Smoking Status: Never smoker Hx Alcohol Use: No Hx Substance Use: No Review of Systems See HPI for pertinent positives & negatives. and A total of 10 systems reviewed and were otherwise negative Physical Exam Vital Signs Vital Signs - 24 hr 03/12/19 06:00 03/12/19 06:30 03/12/19 06:31 Temperature Temperature Source Pulse Rate 136 H 136 H 137 H Pulse Rate [Finger] Pulse Rate from SpO2 Sensor 137 H 137 H 136 H Respiratory Rate 15 20 17 Respiratory Effort / Characteristics Respiratory Depth Blood Pressure 128/87 Blood Pressure [Left Arm] Blood Pressure [Right Arm] Blood Pressure Mean 100 Blood Pressure Mean [Left Arm] Blood Pressure Mean [Right Arm] Blood Pressure Position [Left Arm] Blood Pressure Position [Right Arm] Pulse Oximetry 96 94 95 Pulse Oximetry [Right Index Finger] Oxygen Delivery Method Oxygen Delivery Method [Right Index Finger] 03/12/19 06:45 03/12/19 06:48 03/12/19 06:50 Temperature Temperature Source Pulse Rate 137 H 135 H Pulse Rate [Finger] 135 H 135 H 133 H Pulse Rate from SpO2 Sensor 136 H 134 H Respiratory Rate 19 19 18 Respiratory Effort / Characteristics Non-Labored Respiratory Depth Normal Blood Pressure 130/97 121/94 Blood Pressure [Left Arm] 130/97 121/94 119/92 Blood Pressure [Right Arm] Blood Pressure Mean 108 103 Blood Pressure Mean [Left Arm] 108 103 101 Blood Pressure Mean [Right Arm] Blood Pressure Position [Left Arm] Blood Pressure Position [Right Arm] Pulse Oximetry 96 95 95 Pulse Oximetry [Right Index Finger] Oxygen Delivery Method Oxygen Delivery Method [Right Index Finger] 03/12/19 06:51 03/12/19 07:00 03/12/19 07:01 Temperature Temperature Source Pulse Rate 135 H 134 H 135 H Pulse Rate [Finger] 133 H Pulse Rate from SpO2 Sensor 134 H 134 H 136 H Respiratory Rate 16 23 23 Respiratory Effort / Characteristics Respiratory Depth Blood Pressure 119/92 115/85 Blood Pressure [Left Arm] 115/85 Blood Pressure [Right Arm] Blood Pressure Mean 101 95 Blood Pressure Mean [Left Arm] 95 Blood Pressure Mean [Right Arm] Blood Pressure Position [Left Arm] Blood Pressure Position [Right Arm] Pulse Oximetry 96 96 96 Pulse Oximetry [Right Index Finger] Oxygen Delivery Method Room Air Oxygen Delivery Method [Right Index Finger] 03/12/19 07:16 03/12/19 07:30 03/12/19 07:31 Temperature Temperature Source Pulse Rate 135 H 136 H 136 H Pulse Rate [Finger] Pulse Rate from SpO2 Sensor 135 H 135 H 137 H Respiratory Rate 13 15 15 Respiratory Effort / Characteristics Respiratory Depth Blood Pressure 116/86 123/76 Blood Pressure [Left Arm] Blood Pressure [Right Arm] Blood Pressure Mean 96 91 Blood Pressure Mean [Left Arm] Blood Pressure Mean [Right Arm] Blood Pressure Position [Left Arm] Blood Pressure Position [Right Arm] Pulse Oximetry 96 94 95 Pulse Oximetry [Right Index Finger] Oxygen Delivery Method Oxygen Delivery Method [Right Index Finger] 03/12/19 07:43 03/12/19 08:18 03/12/19 09:00 Temperature 36.7 C Temperature Source Oral Pulse Rate 133 H Pulse Rate [Finger] 137 H 140 H Pulse Rate from SpO2 Sensor Respiratory Rate 20 20 20 Respiratory Effort / Characteristics Non-Labored Respiratory Depth Normal Blood Pressure 111/78 Blood Pressure [Left Arm] 123/76 136/88 Blood Pressure [Right Arm] Blood Pressure Mean Blood Pressure Mean [Left Arm] 91 104 Blood Pressure Mean [Right Arm] Blood Pressure Position [Left Arm] Lying Blood Pressure Position [Right Arm] Pulse Oximetry 95 96 95 Pulse Oximetry [Right Index Finger] Oxygen Delivery Method Room Air Room Air Oxygen Delivery Method [Right Index Finger] 03/12/19 09:30 03/12/19 10:50 03/12/19 15:02 Temperature 36.6 C 36.5 C Temperature Source Oral Oral Pulse Rate Pulse Rate [Finger] 137 H 139 H 137 H Pulse Rate from SpO2 Sensor Respiratory Rate 20 20 20 Respiratory Effort / Characteristics Respiratory Depth Blood Pressure Blood Pressure [Left Arm] 129/82 134/78 123/75 Blood Pressure [Right Arm] Blood Pressure Mean Blood Pressure Mean [Left Arm] 97 96 91 Blood Pressure Mean [Right Arm] Blood Pressure Position [Left Arm] Sitting Sitting Lying Blood Pressure Position [Right Arm] Pulse Oximetry 94 94 95 Pulse Oximetry [Right Index Finger] Oxygen Delivery Method Room Air Room Air Room Air Oxygen Delivery Method [Right Index Finger] 03/12/19 19:12 03/12/19 20:00 03/12/19 20:50 Temperature 36.4 C L Temperature Source Oral Pulse Rate Pulse Rate [Finger] 144 H 142 H Pulse Rate from SpO2 Sensor Respiratory Rate 18 Respiratory Effort / Characteristics Respiratory Depth Blood Pressure Blood Pressure [Left Arm] 100/67 104/68 Blood Pressure [Right Arm] Blood Pressure Mean Blood Pressure Mean [Left Arm] 78 80 Blood Pressure Mean [Right Arm] Blood Pressure Position [Left Arm] Lying Blood Pressure Position [Right Arm] Pulse Oximetry 92 Pulse Oximetry [Right Index Finger] 97 Oxygen Delivery Method Room Air Oxygen Delivery Method [Right Index Finger] Room Air 03/12/19 23:17 03/13/19 03:21 Temperature 36.5 C 36.4 C L Temperature Source Oral Oral Pulse Rate Pulse Rate [Finger] 133 H 133 H Pulse Rate from SpO2 Sensor Respiratory Rate 19 18 Respiratory Effort / Characteristics Respiratory Depth Blood Pressure Blood Pressure [Left Arm] Blood Pressure [Right Arm] 104/69 102/72 Blood Pressure Mean Blood Pressure Mean [Left Arm] Blood Pressure Mean [Right Arm] 80 82 Blood Pressure Position [Left Arm] Blood Pressure Position [Right Arm] Lying Lying Pulse Oximetry 94 95 Pulse Oximetry [Right Index Finger] Oxygen Delivery Method Room Air Room Air Oxygen Delivery Method [Right Index Finger] GENERAL: alert, well appearing, well nourished, no distress, non-toxic EYE EXAM: normal conjunctiva, PERRL and EOM's grossly intact OROPHARYNX: no exudate, no erythema, lips, buccal mucosa, and tongue normal and mucous membranes are moist NECK: supple, no nuchal rigidity, no adenopathy, non-tender LUNGS: Clear to auscultation. Normal chest wall mechanics, no w/r/r HEART: Tachycardia, no murmurs, S1 normal and S2 normal ABDOMEN: abdomen soft, non-tender, normo-active bowel sounds, no masses, no rebound or guarding. BACK: Back is symmetrical on inspection and there is no deformity, no midline tenderness, no CVA tenderness. SKIN: no rashes and no bruising UPPER EXTREMITIES: upper extremities are grossly normal. FROM, nml pulses b/l. LOWER EXTREMITIES: No pitting edema. FROM, nml pulses b/l. NEURO EXAM: Normal sensorium, cranial nerves II-XII grossly intact, normal speech, no gross weakness of arms, no gross weakness of legs. Course 0522: The patient was evaluated in room B09. A complete history and physical exam was performed. 0642: I reevaluated the patient. She has no change in her symptoms. She is about to be medicated. 0702: I discussed the patient's case with Dr. Alex, Cardiology. He recommends the patient be offered cardioversion, and if she declines, she should be placed on a Diltiazem drop and be admitted to the hospitalist. 0716: I reevaluated the patient and offered her an electric cardioversion. She declined the offer. We will proceed with Dr. Alex's recommendations. 0728: Discussed the patient's case with Dr. Barker, [facility] Hospitalist. The patient will be evaluated for further management. Administered Medications Ascorbic Acid (Vitamin C) 1,000 mg PO TIDM [facility] Stop: 04/11/19 11:59 Last Admin: 03/12/19 17:50 Dose: 1,000 mg Documented by: [id number] Admin: 03/12/19 11:21 Dose: 1,000 mg Documented by: [id number] Chlorhexidine Gluconate (Peridex) 15 ml MT HS [facility] Stop: 04/11/19 20:59 Last Admin: 03/12/19 20:50 Dose: 15 ml Documented by: [id number] Fish Oil ([place]-3 (Purified Fish Oil)) 1 gm PO DAILY [facility] Stop: 04/11/19 09:59 Last Admin: 03/12/19 11:22 Dose: 1 gm Documented by: [id number] Diltiazem HCl 125 mg/ Dextrose 125 mls @ 10 mls/hr IV .[id number] [facility]; Protocol Stop: 04/11/19 07:29 Last Admin: 03/12/19 19:58 Dose: 10 mg/hr, 10 mls/hr Documented by: [id number] Cosigned by: [id number] Titration: 03/12/19 19:58 Dose: 10 mg/hr, 10 mls/hr Documented by: [id number] Cosigned by: [id number] Titration: 03/12/19 19:25 Dose: 10 mg/hr, 10 mls/hr Documented by: [id number] Cosigned by: [id number] Titration: 03/12/19 15:30 Dose: 10 mg/hr, 10 mls/hr Documented by: [id number] Admin: 03/12/19 07:44 Dose: 5 mg/hr, 5 mls/hr Documented by: [id number] Cosigned by: [id number] Lisinopril (Zestril) 5 mg PO DAILY [facility] Stop: 04/11/19 09:59 Last Admin: 03/12/19 11:22 Dose: 5 mg Documented by: [id number] Meloxicam (Mobic) 7.5 mg PO DAILY [facility] Stop: 04/11/19 09:59 Last Admin: 03/12/19 11:21 Dose: 7.5 mg Documented by: [id number] Metoprolol Tartrate (Lopressor) 25 mg PO DAILY [facility] Stop: 04/11/19 09:59 Last Admin: 03/12/19 11:22 Dose: 25 mg Documented by: [id number] Metoprolol Tartrate (Lopressor) 50 mg PO QPM [facility] Stop: 04/11/19 20:59 Last Admin: 03/12/19 20:50 Dose: 50 mg Documented by: [id number] Miscellaneous (Order Awaiting Action) 1 ea N/A QS [facility] Stop: 04/11/19 15:59 Last Admin: 03/13/19 00:01 Dose: Not Given Documented by: [id number] Admin: 03/12/19 16:19 Dose: Not Given Documented by: [id number] Multivitamins/Minerals (Caltrate Plus) 1 tab PO BID [facility] Stop: 04/11/19 20:59 Last Admin: 03/12/19 20:50 Dose: 1 tab Documented by: [id number] Pantoprazole Sodium (Protonix) 40 mg PO DAILY [facility] Stop: 04/11/19 09:59 Last Admin: 03/12/19 11:21 Dose: 40 mg Documented by: [id number] Psyllium Hydrophilic Mucilloid (Metamucil) 2 pkt PO HS [facility] Stop: 04/11/19 20:59 Last Admin: 03/12/19 20:50 Dose: 2 pkt Documented by: [id number] Rivaroxaban (Xarelto) 20 mg PO PM [facility] Stop: 04/11/19 20:59 Last Admin: 03/12/19 18:27 Dose: 20 mg Documented by: [id number] Saccharomyces Boulardii (Florastor) 250 mg PO DAILY [facility] Stop: 04/11/19 09:59 Last Admin: 03/12/19 11:21 Dose: 250 mg Documented by: [id number] Vitamin B Complex (Vitamin B Complex) 1 tab PO DAILY [facility] Stop: 04/11/19 09:59 Last Admin: 03/12/19 11:22 Dose: 1 tab Documented by: [id number] Vitamin D (Vitamin D3) 2,000 units PO DAILY [facility] Stop: 04/11/19 09:59 Last Admin: 03/12/19 11:21 Dose: 2,000 units Documented by: [id number] Vitamin E (Vitamin E) 400 units PO DAILY [facility] Stop: 04/11/19 09:59 Last Admin: 03/12/19 11:22 Dose: 400 units Documented by: [id number] Discontinued Medications Diltiazem HCl (Cardizem) 10 mg IV NOW STA Stop: 03/12/19 09:56 Last Admin: 03/12/19 10:10 Dose: 10 mg Documented by: [id number] Cosigned by: [id number] Metoprolol Tartrate (Lopressor) 5 mg IV NOW STA Stop: 03/12/19 06:27 Last Admin: 03/12/19 06:44 Dose: 5 mg Documented by: [id number] Medical Decision Making Differential Diagnosis Differential diagnosis includes etiologies such as premature contractions, electrolyte abnormality, cardiac dysrhythmia, thyroid dysfunction, pulmonary embolism, infection, gastrointestinal, as well as others were entertained. Medical Records Attestation: I reviewed the patient's medical records. Home Medications Current Medication List: was personally reviewed by me Laboratory Data Attestation: I reviewed the patient's lab results. Result diagrams: 03/13/19 04:00 03/13/19 04:00 Lab Results 03/12/19 03/12/19 03/12/19 Range/Units 05:21 05:21 05:21 WBC 5.39 (4.8-10.8) K/uL RBC 4.71 (4.2-5.4) M/uL Hgb 14.7 (12.0-16.0) g/dL Hct 41.2 (37-47) % MCV 87.5 (80-100) fL MCH 31.2 (25-34) pg MCHC 35.7 (32-36) g/dL RDW Std Deviation 42.3 (36.4-46.3) fL RDW Coeff of [place] 13.2 (11.5-14.5) % Plt Count 239 (130-400) K/uL MPV 9.6 (7.4-10.4) fL Immature Gran % (Auto) 0.2 % Neut % (Auto) 45.4 % Lymph % (Auto) 40.8 % [place] % (Auto) 10.8 % Eos % (Auto) 2.2 % Baso % (Auto) 0.6 % Immature Gran # (Auto) 0.01 (0.00-0.02) K/uL Neut # (Auto) 2.45 (1.4-6.5) K/uL Lymph # (Auto) 2.20 (1.2-3.4) K/uL [place] # (Auto) 0.58 (0.11-0.59) K/uL Eos # (Auto) 0.12 (0-0.5) K/uL Baso # (Auto) 0.03 (0-0.2) K/uL PT 11.2 (9.0-12.0) Seconds INR 1.1 (0.9-1.1) APTT 29.1 (21.0-31.0) Seconds PTT Ratio 1.1 Sodium 137 (136-145) mmol/L Potassium 3.8 (3.5-5.1) mmol/L Chloride 103 (98-107) mmol/L Carbon Dioxide 28 (21-32) mmol/L Anion Gap 6.0 (3-11) BUN 19 H (7-18) mg/dl Creatinine 1.06 (0.6-1.2) mg/dl Est Cr Clr Drug Dosing 55.2 ml/min Est GFR ( Amer) 59.9 Est GFR (Non-Af Amer) 51.7 BUN/Creatinine Ratio 17.8 (10-20) Glucose 132 H (70-99) mg/dl POC Glucose (70-99) Calcium 9.3 (8.5-10.1) mg/dl Magnesium 2.1 (1.8-2.4) mg/dl Total Bilirubin 0.3 (0.2-1) mg/dl AST 19 (15-37) U/L ALT 26 (12-78) U/L Alkaline Phosphatase 54 (45-117) U/L Troponin I < 0.015 (0-0.045) ng/ml Total Protein 7.3 (6.4-8.2) gm/dl Albumin 3.7 (3.4-5.0) gm/dl Globulin 3.6 (2.5-4.0) gm/dl Albumin/Globulin Ratio 1.0 (0.9-2) Lipase 294 (73-393) U/L TSH 2.370 (0.300-4.500) uIu/ml Specimen Hemolysis Urine Color Urine Appearance (Clear) Urine pH (4.5-7.5) Ur Specific [place] (1.000-1.030) Urine Protein (Negative) Urine Glucose (UA) (Negative) Urine Ketones (Negative) Urine Blood (Negative) Urine Nitrite (Negative) Urine Bilirubin (Negative) Urine Urobilinogen (Negative) Ur Leukocyte Esterase (Negative) 03/12/19 03/12/19 03/12/19 Range/Units 06:54 12:49 16:04 WBC (4.8-10.8) K/uL RBC (4.2-5.4) M/uL Hgb (12.0-16.0) g/dL Hct (37-47) % MCV (80-100) fL MCH (25-34) pg MCHC (32-36) g/dL RDW Std Deviation (36.4-46.3) fL RDW Coeff of [place] (11.5-14.5) % Plt Count (130-400) K/uL MPV (7.4-10.4) fL Immature Gran % (Auto) % Neut % (Auto) % Lymph % (Auto) % [place] % (Auto) % Eos % (Auto) % Baso % (Auto) % Immature Gran # (Auto) (0.00-0.02) K/uL Neut # (Auto) (1.4-6.5) K/uL Lymph # (Auto) (1.2-3.4) K/uL [place] # (Auto) (0.11-0.59) K/uL Eos # (Auto) (0-0.5) K/uL Baso # (Auto) (0-0.2) K/uL PT (9.0-12.0) Seconds INR (0.9-1.1) APTT (21.0-31.0) Seconds PTT Ratio Sodium (136-145) mmol/L Potassium (3.5-5.1) mmol/L Chloride (98-107) mmol/L Carbon Dioxide (21-32) mmol/L Anion Gap (3-11) BUN (7-18) mg/dl Creatinine (0.6-1.2) mg/dl Est Cr Clr Drug Dosing ml/min Est GFR ( Amer) Est GFR (Non-Af Amer) BUN/Creatinine Ratio (10-20) Glucose (70-99) mg/dl POC Glucose 100 H (70-99) Calcium (8.5-10.1) mg/dl Magnesium (1.8-2.4) mg/dl Total Bilirubin (0.2-1) mg/dl AST (15-37) U/L ALT (12-78) U/L Alkaline Phosphatase (45-117) U/L Troponin I 0.056 H* (0-0.045) ng/ml Total Protein (6.4-8.2) gm/dl Albumin (3.4-5.0) gm/dl Globulin (2.5-4.0) gm/dl Albumin/Globulin Ratio (0.9-2) Lipase (73-393) U/L TSH (0.300-4.500) uIu/ml Specimen Hemolysis Urine Color Yellow Urine Appearance Clear (Clear) Urine pH 7.5 (4.5-7.5) Ur Specific [place] 1.011 (1.000-1.030) Urine Protein Negative (Negative) Urine Glucose (UA) Negative (Negative) Urine Ketones Negative (Negative) Urine Blood Negative (Negative) Urine Nitrite Negative (Negative) Urine Bilirubin Negative (Negative) Urine Urobilinogen Negative (Negative) Ur Leukocyte Esterase Negative (Negative) 03/12/19 03/12/19 03/13/19 Range/Units 20:20 20:51 04:00 WBC 6.56 (4.8-10.8) K/uL RBC 4.46 (4.2-5.4) M/uL Hgb 14.2 (12.0-16.0) g/dL Hct 39.0 (37-47) % MCV 87.4 (80-100) fL MCH 31.8 (25-34) pg MCHC 36.4 H (32-36) g/dL RDW Std Deviation 42.4 (36.4-46.3) fL RDW Coeff of [place] 13.2 (11.5-14.5) % Plt Count 226 (130-400) K/uL MPV 9.3 (7.4-10.4) fL Immature Gran % (Auto) % Neut % (Auto) % Lymph % (Auto) % [place] % (Auto) % Eos % (Auto) % Baso % (Auto) % Immature Gran # (Auto) (0.00-0.02) K/uL Neut # (Auto) (1.4-6.5) K/uL Lymph # (Auto) (1.2-3.4) K/uL [place] # (Auto) (0.11-0.59) K/uL Eos # (Auto) (0-0.5) K/uL Baso # (Auto) (0-0.2) K/uL PT (9.0-12.0) Seconds INR (0.9-1.1) APTT (21.0-31.0) Seconds PTT Ratio Sodium (136-145) mmol/L Potassium (3.5-5.1) mmol/L Chloride (98-107) mmol/L Carbon Dioxide (21-32) mmol/L Anion Gap (3-11) BUN (7-18) mg/dl Creatinine (0.6-1.2) mg/dl Est Cr Clr Drug Dosing ml/min Est GFR ( Amer) Est GFR (Non-Af Amer) BUN/Creatinine Ratio (10-20) Glucose (70-99) mg/dl POC Glucose 118 H (70-99) Calcium (8.5-10.1) mg/dl Magnesium (1.8-2.4) mg/dl Total Bilirubin (0.2-1) mg/dl AST (15-37) U/L ALT (12-78) U/L Alkaline Phosphatase (45-117) U/L Troponin I 0.262 H* (0-0.045) ng/ml Total Protein (6.4-8.2) gm/dl Albumin (3.4-5.0) gm/dl Globulin (2.5-4.0) gm/dl Albumin/Globulin Ratio (0.9-2) Lipase (73-393) U/L TSH (0.300-4.500) uIu/ml Specimen Hemolysis Urine Color Urine Appearance (Clear) Urine pH (4.5-7.5) Ur Specific [place] (1.000-1.030) Urine Protein (Negative) Urine Glucose (UA) (Negative) Urine Ketones (Negative) Urine Blood (Negative) Urine Nitrite (Negative) Urine Bilirubin (Negative) Urine Urobilinogen (Negative) Ur Leukocyte Esterase (Negative) 03/13/19 Range/Units 04:00 WBC (4.8-10.8) K/uL RBC (4.2-5.4) M/uL Hgb (12.0-16.0) g/dL Hct (37-47) % MCV (80-100) fL MCH (25-34) pg MCHC (32-36) g/dL RDW Std Deviation (36.4-46.3) fL RDW Coeff of [place] (11.5-14.5) % Plt Count (130-400) K/uL MPV (7.4-10.4) fL Immature Gran % (Auto) % Neut % (Auto) % Lymph % (Auto) % [place] % (Auto) % Eos % (Auto) % Baso % (Auto) % Immature Gran # (Auto) (0.00-0.02) K/uL Neut # (Auto) (1.4-6.5) K/uL Lymph # (Auto) (1.2-3.4) K/uL [place] # (Auto) (0.11-0.59) K/uL Eos # (Auto) (0-0.5) K/uL Baso # (Auto) (0-0.2) K/uL PT (9.0-12.0) Seconds INR (0.9-1.1) APTT (21.0-31.0) Seconds PTT Ratio Sodium 137 (136-145) mmol/L Potassium 4.0 (3.5-5.1) mmol/L Chloride 104 (98-107) mmol/L Carbon Dioxide 30 (21-32) mmol/L Anion Gap 3.0 (3-11) BUN 21 H (7-18) mg/dl Creatinine 0.98 (0.6-1.2) mg/dl Est Cr Clr Drug Dosing 59.4 ml/min Est GFR ( Amer) 65.9 Est GFR (Non-Af Amer) 56.8 BUN/Creatinine Ratio 21.2 H (10-20) Glucose 133 H (70-99) mg/dl POC Glucose (70-99) Calcium 9.0 (8.5-10.1) mg/dl Magnesium (1.8-2.4) mg/dl Total Bilirubin (0.2-1) mg/dl AST (15-37) U/L ALT (12-78) U/L Alkaline Phosphatase (45-117) U/L Troponin I 0.457 H* (0-0.045) ng/ml Total Protein (6.4-8.2) gm/dl Albumin (3.4-5.0) gm/dl Globulin (2.5-4.0) gm/dl Albumin/Globulin Ratio (0.9-2) Lipase (73-393) U/L TSH (0.300-4.500) uIu/ml Specimen Hemolysis Urine Color Urine Appearance (Clear) Urine pH (4.5-7.5) Ur Specific [place] (1.000-1.030) Urine Protein (Negative) Urine Glucose (UA) (Negative) Urine Ketones (Negative) Urine Blood (Negative) Urine Nitrite (Negative) Urine Bilirubin (Negative) Urine Urobilinogen (Negative) Ur Leukocyte Esterase (Negative) Imaging Data Radiologist's Impression: Radiology results as stated below per my review and the radiologist's interpretation: XR chest 1V portable CLINICAL HISTORY: chest pain/palpitations dyspnea COMPARISON STUDY: 11/04/2015 FINDINGS: Moderate cardiomegaly. Lungs are clear. Diaphragms smooth. IMPRESSION: Moderate cardiomegaly. Otherwise negative study. The above report was generated using voice recognition software. It may contain grammatical, syntax or spelling errors. Electronically signed by: Arnulfo Atkinson M.D. 03/12/2019 6:27 AM ECG Data Attestation: I personally reviewed and interpreted this ECG as follows: Indication: palpitations Rate (beats per minute): 130 Rhythm: atrial flutter Findings: + other (Normal axis. Normal intervals.) and + ST depression (V4, V5, Lead I.); no ST elevation Blood Pressure Blood Pressure Findings: Normal blood pressure Blood Pressure Disposition: did not require urgent referral MDM Narrative Patient here well-appearing, labs and imaging reassuring. Patient found to be in a flutter and a rate of the 130s. Discussed with patient prior history and contacted her echocardiography radiology technologist Dr. Alex. Patient declined electrical cardioversion but was in agreement with plan for medical management with diltiazem drip. Patient is anticoagulated, I do not suspect PE. I do not suspect infectious etiology contributing to rhythm change. I do not suspect ACS. Patient had no change with additional IV Lopressor given. Diltiazem drip was ordered. Patient was made aware of all results in agreement with plan for inpatient management. Impression & Plan Atrial flutter, Chest pain, Palpitations Critical Care Time I have personally spent 35 minutes of critical care time in the direct management of this patient. This includes bedside care, interpretation of diagnostic studies, and testing, discussion with consultants, patient, and family members, and other required patient management activities. This 35 minut es is in excess of all separately billable procedures. Critical Care Time: Yes Total Critical Care Time: 35 Discharge Plan Visit Data *Final* Discharge Date/Time: 03/12/19 08:18 Chief Complaint: Cardiac Assessment Stated Complaint: CHEST DISCOMFORT,HIGH BLOOD PRESSURE ED Provider: Indira Maynard Discharge Problem: Atrial flutter, Chest pain, Palpitations Patient Disposition: Admitted As Inpatient Discharge Instructions Interventions: ED Discharge Assessment Last Done: 03/12/19 08:18 Discharge Problem: Atrial flutter Qualifiers: Atrial flutter type: unspecified Qualified Code(s): I48.92 - Unspecified atrial flutter Chest pain Qualifiers: Chest pain type: unspecified Qualified Code(s): R07.9 - Chest pain, unspecified The scribe's documentation has been prepared under my direction and personally reviewed by me in its entirety. I confirm that the note above accurately reflects all work, treatment, procedures, and medical decision making performed by me.
--- NOTE | 2019-03-13 08:36 | Cardiology Progress Note ---
Date of Service She notes some mild shortness of breath today she remains in atrial flutter with a rapid ventricular response. She has any chest pain or chest pressure. She has any lightheadedness or dizziness. She does note that she got up to go the bathroom multiple times last evening. March 13, 2019 Results & Data Vital Signs (Past 12 Hours) Vital Signs Temp Pulse Resp BP BP Pulse Ox 03/13/19 07:33 36.6 C 138 H 19 90/66 L 95 03/13/19 03:21 36.4 C L 133 H 18 102/72 95 03/12/19 23:17 36.5 C 133 H 19 104/69 94 03/12/19 20:50 142 H 104/68 PHYSICAL EXAMINATION: GENERAL: She is awake, alert, oriented x3. She is in no acute distress. She is answering questions appropriately. HEENT: Her carotid upstrokes could not be felt due to her fast heart rate. Her sclerae are anicteric. There were no carotid bruits. Her hearing is normal. LUNGS: Clear to auscultation bilaterally. No rales, rhonchi, wheezing. HEART: Tachycardic (regular). No appreciable murmurs, rubs or gallops. ABDOMEN: Soft, nontender, nondistended. Positive bowel sounds. EXTREMITIES: No clubbing, cyanosis or edema. PSYCHIATRIC: Her affect appeared appropriate. IMPRESSION: 1. New onset atrial flutter with a rapid ventricular response. 2. History of paroxysmal atrial fibrillation, on chronic Xarelto. 3. Preserved left ventricular systolic function. 4. Negative stress test in 06/2014. 5. Hypertension. 6. Severe obstructive sleep apnea, tolerating CPAP. We will reduce her diltiazem drip to 5 mg/h I will give her Lasix 10 mg IV x1 dose this morning due to her mild shortness of breath and likely associated heart failure with her rapid rates She will remain n.p.o. and the plan is for cardioversion at 1 PM in the [facility] with anesthesia Assuming pentecostalism of sinus rhythm she can be discharged home this afternoon. If she were to have recurrent atrial arrhythmias at that point we would need to consider antiarrhythmic therapy to help maintain sinus rhythm.
[2019-03-13] MEDS ORDERED: FUROSEMIDE 10 MG in SYRINGE 0 ML IV SCH (08:45)
[2019-03-13] MEDS: dilTIAZem HCl 125 MG in DEXTROSE 5% 100 ML IV SCH (09:07)
[2019-03-13] MEDS ORDERED: LIDOCAINE HCL 2% 2 ML VIAL/AMP(20MG/ML) INFIL ONE (13:58)
[2019-03-13] MEDS ORDERED: PROPOFOL IV EMULSION 10 MG/ML 20 ML VIAL IV ONE (13:58)
--- NOTE | 2019-03-13 14:01 | Procedure Note ---
Procedure Note Date of Service March 13, 2019 Note Procedure performed: Cardioversion Indication: Patient is a 73-year-old woman who presented on [address] [place] [address] with atrial flutter. Staff district administrative assistant: Scott Aguilar MD Procedure in detail: The patient was informed of the risks benefits and alternatives to the intended procedure. [She] understood such which proceed. [She] was taken to the cardiac catheterization suite holding area. A general anesthetic was administered by the Anesthesiology Service. Once appropriately anesthetized, the patient was cardioverted using 30 J. This resulted in a change of her rhythm to atrial fibrillation. A second application of 200 J delivered in a biphasic fashion return to the sinus rhythm. The patient tolerated procedure well, there were no immediate complications. Patient was neurologically intact subsequent to the procedure. Impression: Successful cardioversion from atrial [flutter] to normal sinus rhythm Coding
[2019-03-13] MEDS: ASCORBIC ACID 500 MG TAB PO SCH ×2 (14:56→14:57)
[2019-03-13] MEDS: CALCIUM 600MG + VIT D 400 IU TAB PO SCH (14:57)
[2019-03-13] MEDS: SACCHAROMYCES BOULARDII 250 MG CAP PO SCH (14:57)
[2019-03-13] MEDS: METOPROLOL TARTRATE 25 MG TAB PO SCH (14:58)
[2019-03-13] MEDS: PANTOprazole 40 MG TAB PO SCH (14:58)
[2019-03-13] MEDS: MELOXICAM 7.5 MG TAB PO SCH (14:58)
[2019-03-13] MEDS: OMEGA-3 (PURIFIED FISH OIL) 1 GM CAP PO SCH (14:58)
[2019-03-13] MEDS: VITAMIN B COMPLEX TAB PO SCH (14:58)
[2019-03-13] MEDS: CHOLECALCIFEROL 1,000 UNITS TAB PO SCH (14:58)
[2019-03-13] MEDS: LISINOPRIL 5 MG TAB PO SCH (14:59)
[2019-03-13] MEDS: TOCOPHERYL, DL-ALPHA 400 UNITS CAP PO SCH (14:59)
--- NOTE | 2019-03-13 16:07 | Discharge Summary ---
Date of Service March 13, 2019 Admission HPI Per Admitting Provider 73 yo female with history of atrial fibrillation, normally well controlled on metoprolol and anticoagulated on Xarelto, presented to the ED this morning for palpitations and some mild chest pressure. She said she also experienced some light headedness. She says she woke up with the symptoms around 4am. She felt well yesterday, no issues at all. She waited until 430 and the palpitations did not go away so she woke her and he brought her to the ED. She was found to be in atrial flutter with rates 135-140. She was given an extra dose of metoprolol and started on Cardizem drip. HR did not improve. Dr. Alex, her payment manager, was contacted and he recommended admission. Patient says that she has had atrial fibrillation since 2008. Typically very well controlled, only fourth time she has been hospitalized for rate control in the past 10 years. Compliant with her medications. Admission Exam Per Admitting Provider Constitutional: WD/WN, vitals as above Eyes: PERRL, conjunctivae normal, anicteric sclerae ENMT: external ear and nose normal, oropharynx normal Neck: trachea midline, no thyromegaly Respiratory: normal respiratory effort, lungs clear to auscultation Cardiovascular: Rate/Rhythm: regular rate and + tachycardic Heart Sounds: normal S1 and normal S2; no murmur Vessels: normal peripheral pulses Extremities: no edema Gastrointestinal (Abdomen): normal bowel sounds, soft, nontender, no hepatosplenomegaly Musculoskeletal: no cyanosis or clubbing, extremities motor strength 5/5 Skin: no rashes, warm and dry Neurologic: patellar DTR's 2+ bilat, sensation intact and PERRL, EOMI, accommodation nl, no face palsy, no dysarthria Psychiatric: A+Ox3, euthymic affect Lymphatic: no cervical or axillary lymphadenopathy Principal Diagnosis Atrial flutter with RVR Discharge Exam Constitutional WD/WN, vitals as above Eyes PERRL, conjunctivae normal, anicteric sclerae ENMT external ear and nose normal, oropharynx normal Neck trachea midline, no thyromegaly Respiratory normal respiratory effort, lungs clear to auscultation Cardiovascular Rate/Rhythm: regular rate and regular rhythm Heart Sounds: normal S1 and normal S2; no murmur Vessels: normal peripheral pulses Extremities: no edema Gastrointestinal (Abdomen) normal bowel sounds, soft, nontender, no hepatosplenomegaly Musculoskeletal no cyanosis or clubbing, extremities motor strength 5/5 Skin no rashes, warm and dry Neurologic patellar DTR's 2+ bilat, sensation intact and PERRL, EOMI, accommodation nl, no face palsy, no dysarthria Psychiatric A+Ox3, euthymic affect Lymphatic no cervical or axillary lymphadenopathy Discharge Data Allergies Allergy/AdvReac Type Severity Reaction Status Date / Time adhesive Allergy Mild redness/swe Verified 03/12/19 05:42 lling codeine Allergy Mild vomiting Unverified 03/12/19 05:42 morphine Allergy Mild Vomiting Verified 03/12/19 05:42 Consultations 03/12/19 07:28 ED Decision to Admit Stat 03/12/19 09:25 Consult Cardiology Routine 03/12/19 11:18 Consult Anesthesiology Routine Procedures Performed Operation Date: 03/13/19 12:00 Actual Procedures p Cardioversion Molecular Pathologist w/Anesthesia - Rui Aguilar MD Hospital Course (1) Atrial flutter: has a long history of afib, rates controlled on Metoprolol 25mg qAM and 50mg qPM anticoagulated on Xarelto presented with aflutter, rates 135-140 awoke at 4am with symptoms, felt well the day before experienced some chest pain, palpitations prior to admission started on Cardizem drip but no improvement, plan for cardioversion successful cardioversion with Dr. Aguilar on 03/13/19 in sinus rhythm on the monitor d/c to home after she ate a late lunch will increase metoprolol to 50mg in the morning and continue 50mg in the evening follow up with Dr. Alex (2) Palpitations: due to aflutter (3) HTN (hypertension): BP stable, will continue Metoprolol and Cardizem drip hold HCTZ, hold Lisinopril (4) Afib: afib x 10 years, this is only the 4th time she has been hospitalized follows with Dr. Alex chronically (5) GERD (gastroesophageal reflux disease): (6) Demand ischemia of myocardium: troponin jose minimally, this was due to RVR no further invasive work up planned Total Time Total Time Spent Total Time Spent (In Minutes): 35 minutes Total Time Includes: Examination of the Patient, Discharge Planning, Medication Reconciliation and Communication With Other Providers (Dr. Aguilar) Discharge Plan Discharge Items Patient Disposition: Home - Self-Care Reason For Visit: AFLUTTER WITH RVR Discharge Diagnosis: Atrial flutter with RVR successful cardioversion Condition: Good Discharge Goals: Improve disease control and Improve function Activity: Resume your previous activity Non-emergency contact: Primary Care Provider and Safety Professional Call non-emergency contact if: you have any medication questions, your symptoms worsen and you have a fever Follow-up/Referrals: Lori Kong CRNP [Primary Care Provider] - Diet: Heart Healthy Addtl Provider Instructions: Medications: - Metoprolol: Dr. Alex recommends increasing to 50mg in the morning from 25mg Atrial flutter: successful cardioversion at 200J continue on Metoprolol for rate control and Xarelto for anticoagulation increase morning Metoprolol back to 50mg follow up with Dr. Alex in two weeks follow up with Lori Kong in one week Prescriptions: Continued chlorhexidine gluconate 0.12 % Mouthwash 15 ml PO HS RF: 0 hydrochlorothiazide 25 mg Tablet 25 mg PO DAILY RF: 0 meloxicam 7.5 mg Tablet 7.5 mg PO DAILY RF: 0 metoprolol tartrate 50 mg Tablet 50 mg PO QPM RF: 0 omeprazole 20 mg Capsule,Delayed Release(Dr/Ec) 20 mg PO DAILY RF: 0 Xarelto 20 mg Tablet 20 mg PO PM RF: 0 lisinopril 5 mg Tablet 5 mg PO DAILY RF: 0 vitamin B complex Capsule 1 cap PO DAILY RF: 0 calcium carbonate-vitamin D3 [Caltrate with Vitamin D3] 600 mg(1,500mg) -800 unit Tablet 1 tab PO BID RF: 0 cinnamon bark [Cinnamon] 500 mg Capsule 1,000 mg PO TID RF: 0 omega [id number] oil [Fish Oil] 1,000 mg (120 mg-180 mg) Capsule 1 cap PO DAILY RF: 0 glucosamine sulfate [Glucosamine] 500 mg Tablet 1,500 mg PO BID RF: 0 chondroitin sulfate A sodium 400 mg Capsule 1,200 mg PO BID RF: 0 Metamucil 3.4 gram/5.4 gram Powder 2 tbsp PO HS RF: 0 methylsulfonylmethane [MSM] 1,000 mg Tablet 1,000 mg PO DAILY RF: 0 multivitamin Tablet 1 tab PO DAILY RF: 0 Systane Balance 0.6 % Drops 1 drp OPHTHALMIC (EYE) BID PRN (Reason: Dry Eyes) RF: 0 ascorbic acid (vitamin C) [Vitamin C] 1,000 mg Tablet Extended Release 1,000 mg PO TID RF: 0 cholecalciferol (vitamin D3) [Vitamin D3] 2,000 unit Capsule 2,000 unit PO DAILY RF: 0 vitamin E 400 unit Capsule 400 unit PO DAILY RF: 0 Womens Probiotic 1 dose PO DAILY RF: 0 lidocaine HCl [Aspercreme (lidocaine)] 4 % Cream 1 applic TOPICAL BID PRN (Reason: Pain) RF: 0 Changed metoprolol tartrate 25 mg Tablet 50 mg PO DAILY Qty: 0 RF: 0 Stand-Alone Forms: [facility] Discharge Orders: Discharge Order (Routine); Ordered 03/13/19 Ordered By: Rodri Barker Admission Data Admit Date/Time: 03/12/19 08:20 Attending Provider: Rodri Barker Admit Provider: Rodri Barker Primary Care Provider: Lori Kong Other Providers: Rodri Barker ; Familia Alex ; Lesia Peralta Service: Telemetry Other Interventions: Discharge Summary Assessment (RN) Last Done: 03/13/19 14:37 DC Date/Time DO NOT enter until pt leaves facility: 03/13/19 16:00
--- NOTE | 2019-03-13 17:02 | Anesthesiology Progress Note ---
Date of Service March 13, 2019 Anesthesia Post Procedure Vital Signs Vital Signs: Temp Pulse Resp BP BP Pulse Ox Pulse Ox 03/13/19 15:03 36.6 C 66 19 126/87 96 03/13/19 14:37 37.1 C 68 16 104/68 109/68 95 03/13/19 14:00 37.1 C 68 16 109/68 95 03/13/19 10:47 36.6 C 144 H 19 109/77 94 03/13/19 07:33 36.6 C 138 H 19 90/66 L 95 03/13/19 03:21 36.4 C L 133 H 18 102/72 95 03/12/19 23:17 36.5 C 133 H 19 104/69 94 03/12/19 20:50 142 H 104/68 03/12/19 20:00 97 03/12/19 19:12 36.4 C L 144 H 18 100/67 92 Transfer of Care Handoff Completed per policy Notes Mental Status: alert / awake / arousable and participated in evaluation Patient Amnestic to Procedure: Yes Nausea / Vomiting: adequately controlled Pain: adequately controlled Airway Patency, RR, SpO2: stable & adequate BP & HR: stable & adequate Hydration State: stable & adequate Anesthetic Complications: no major complications apparent and Pt Satisfied with anesthetic care
== END 2019-03-13 16:00 | disposition home or self-care (01) | DRG 309 ==
LOC: ED 05:11 → 2S 08:18

== ENCOUNTER 2024-03-04 02:54 | Observation (INO) ==
--- NOTE | 2024-03-04 03:05 | Emergency Department Note ---
Impression & Plan Chest pain ED Provider Note CHIEF COMPLAINT: Chest pain HISTORY OF PRESENTING ILLNESS: This 78-year-old female patient presents to the emergency department with her for evaluation of chest pain and heart palpitations that started at 1:30 AM this morning. The pain is on the left side of her chest and radiates to her left jaw. She has a history of A-fib with cardiac ablation in May 2023 and cardioversion in August 2023 per patient. She states that she has heart palpitations every day, but these seem different than her normal palpitations. She does not usually have the chest pressure with her palpitations. The chest pressure lasted for about 1.5 hrs before resolving. Currently she denies any chest pain or pressure and the jaw pain resolved as well. She is on Xarelto. Does not take aspirin and did not have any aspirin today. [place] nausea with the symptoms and had a lot of burping initially, but that seems better. Denies abdominal pain or vomiting. No new back pain, but does have chronic back pain. Denies any new urinary symptoms or new problems with her BMs. She sees Dr. Alex of cardiology. Has not had any workup of her heart since Aug 2023. REVIEW OF SYSTEMS: See HPI for pertinent positives and pertinent negatives. ALLERGIES: Adhesives, codeine, morphine MEDICATIONS: See below PAST MEDICAL HISTORY: See below PHYSICAL EXAM: VITALS: Vitals are noted on the nurse's note and reviewed by myself. GENERAL: Non toxic, no acute distress, non-diaphoretic. SKIN: Capillary refill <2 sec. EYES: PERRLA. EOMI. Conjunctivae without injection, sclerae without icterus. NOSE: Patent without discharge. MOUTH: Mucous membranes moist. Uvula midline. Airway patent. NECK: Supple without nuchal rigidity. HEART: Regular rate and rhythm without murmurs gallops or rubs. LUNGS: Clear to auscultation bilaterally without wheezes, rales or rhonchi. No retractions or accessory muscle use. ABDOMEN: Positive bowel sounds x 4. Normal tympanic percussion. Soft, nontender. No masses or organomegaly. Graves sign negative. No guarding or rebound tenderness. No focal RLQ or LLQ tenderness. MUSCULOSKELETAL: No gross musculoskeletal defects. Bilateral lower extremities are nontender to palpation with no erythema, edema, or warmth. NEURO: Patient was alert and oriented. No focal neurological deficits. DIFFERENTIAL DIAGNOSIS: Differential diagnosis includes angina, MD, pericarditis, myocarditis, aortic dissection, pleurisy, pneumothorax, PE, pneumonia, pneumomediastinum, esophagitis, esophageal spasm, GERD, perforated esophagus, perforated duodenal/gastric ulcer, pancreatitis, cholecystitis, costochondritis, musculoskeletal, bronchitis, URI, or others. ED COURSE AND MEDICAL DECISION MAKING: MONITOR: Continuous personnel monitor: Order was placed for continuous personnel monitor. Patient was placed on the personnel monitor and continuous pulse ox. Patient was noted to be in normal sinus rhythm at an initial rate of 70 bpm per my interpretation. EKG: EKG was interpreted by myself as sinus rhythm at 87 bpm with prolonged TN interval of 210, but no acute ST or T wave changes. Repeat EKG reveals normal sinus rhythm at 62 bpm with no acute ST or T wave changes, but there is some possible new nonspecific T wave abnormalities. MEDICATIONS GIVEN: Aspirin 324 mg p.o. 500 mL normal saline solution bolus. INTERPRETATION OF LABS: I interpreted the labs with full lab results as below in the lab section of this note. White blood cell count normal at 4.97. Hemoglobin normal at 13.5. Platelet count normal at 226. PT 12.2. INR 1.1. aPTT 32. PTT ratio 1.1. BUN elevated at 35 and glucose 132, but CMP otherwise normal. Magnesium normal. TSH normal. Initial high-sensitivity troponin 5.5 with repeat high sensitive troponin 10.0. Urinalysis normal. INTERPRETATION OF IMAGING: Chest x-ray per my interpretation showed cardiomegaly with no acute cardiopulmonary etiology compared to her previous chest x-rays. Radiology report is still pending. CONSULTATIONS: On-call hospitalist MDM SUMMARY: I examined the patient. The patient was woken up with heart palpitations and chest pressure at 1:30 AM this morning. The chest pressure radiated into the left jaw. Symptoms lasted for approximately 1.5 hours. However, by the time the patient came to the ER, her symptoms had resolved. She has a history of A- fib with cardioversion and cardiac ablation. She is on Xarelto, but has not had any aspirin today. An IV lock was placed and labs were drawn. She was given aspirin 324 mg p.o. chewed. She was hydrated with 500 mL normal saline solution bolus. EKG x 2 without evidence for STEMI. High-sensitivity troponin initially was 5.5 with repeat at 10.0. The patient's heart score is 5. Remainder the workup as above without significant abnormalities. The patient remained chest pain-free while in the emergency department. Due to the almost doubling of her troponin along with her heart score and description of symptoms, it was felt the patient should be admitted for further evaluation and treatment. The patient was independently evaluated by Dr. Graves, who agrees with my assessment and treatment plan. I spoke with the on-call hospitalist who agreed to admit the patient for further evaluation and treatment. Please refer to their dictation for further details. The patient's care was transferred in stable condition. DIAGNOSIS: Chest pain Past Med/Surg History Medical History Afib Allergic rhinitis Arthralgia of multiple sites Atrial fibrillation Atrial flutter Benign polyp of large intestine Chronic anticoagulation Chronic right hip pain Demand ischemia of myocardium Diverticulosis of colon Encounter for annual routine gynecological examination GERD (gastroesophageal reflux disease) Hiatal hernia History of abnormal mammogram HTN (hypertension) HTN (hypertension) Hyperlipidemia Irritable bowel syndrome Lumbosacral radiculopathy at L4 Moderate cervical dysplasia Neuropathic pain, leg, bilateral Non-smoker Obesity Obstructive sleep apnea Polyneuropathy Rectocele Sleep apnea Spinal stenosis Trigeminal neuralgia Tubular adenoma of colon Umbilical hernia Varicella Vitamin D deficiency Vocal cord polyp Surgical History H/O colonoscopy H/O oral surgery H/O: hysterectomy History of back surgery History of cardioversion History of loop electrical excision procedure (LEEP) Hx of cataract surgery S/P cholecystectomy S/P dilation and curettage S/P hip replacement S/P tubal ligation Family History Sister Hemorrhagic stroke Colorectal cancer Coronary heart disease Mother Hemorrhagic stroke Denies family history of Ovarian cancer Breast cancer Social History Smoking Status: Never smoker Second Hand Exposure: No; Do You Dip or Chew Tobacco: No; Hx Alcohol Use: No Hx Substance Use: No Preferred Language: Portuguese Communication Ability: Effective Graphics Manager Required: No Beliefs That Will Affect Care: None marital status: Current Living Situation: Spouse current occupational status: retired How many Children do You have: 2 Feels Safe at Home: Yes Childhood Exposure to Second-Hand Smoke: No Diet: regular caffeine: No Dental Care, Regularly: Yes Physical Activity Frequency: Does not Exercise Seatbelt Use: always Sunscreen Use: Yes Assistive Devices: Glasses Allergies Allergies Allergy/AdvReac Type Severity Reaction Status Date / Time adhesive Allergy Mild redness/swe Verified 08/20/23 15:31 lling codeine Allergy Mild vomiting Verified 08/20/23 15:31 morphine Allergy Mild Vomiting Verified 08/20/23 15:31 adhesive tape Allergy Verified 08/20/23 15:31 Home Meds Home Medications Medication Instructions Recorded Confirmed ascorbic acid (vitamin C) 1,000 mg 1,000 mg PO TID 03/12/19 08/20/23 tablet,extended release (Vitamin C ER) calcium carbonate 600 mg-vitamin 1 tab PO BID 03/12/19 08/20/23 D3 20 mcg (800 unit) tablet (Caltrate with Vitamin D3) chlorhexidine gluconate 0.12 % 15 ml PO HS 03/12/19 08/20/23 mouthwash cholecalciferol (vitamin D3) 50 2,000 unit PO DAILY 03/12/19 08/20/23 mcg (2,000 unit) capsule (Vitamin D3) chondroitin sulfate A sodium 400 1,200 mg PO BID 03/12/19 08/20/23 mg capsule cinnamon bark 500 mg capsule 1,000 mg PO TID 03/12/19 08/20/23 (Cinnamon) glucosamine sulfate 500 mg tablet 1,500 mg PO BID 03/12/19 08/20/23 (Glucosamine) lidocaine HCl 4 % topical cream 1 applic topical BID PRN Pain 03/12/19 08/20/23 (Aspercreme (lidocaine HCl)) methylsulfonylmethane 1,000 mg 1,000 mg PO DAILY 03/12/19 08/20/23 tablet (MSM) multivitamin 1 tab PO DAILY 03/12/19 08/20/23 omega [id number] oil 1,000 mg 1 cap PO DAILY 03/12/19 08/20/23 (120 mg-180 mg) capsule (Fish Oil) omeprazole 20 mg capsule,delayed 20 mg PO DAILY 03/12/19 08/20/23 release propylene glycol 0.6 % eye drops 1 drp ophthalmic (eye) BID PRN Dry 03/12/19 08/20/23 (Systane Balance) Eyes psyllium husk 3.4 gram/5.4 gram 2 tbsp PO HS 03/12/19 08/20/23 oral powder (Metamucil) rivaroxaban 20 mg tablet (Xarelto) 20 mg PO PM 03/12/19 08/20/23 vitamin B complex 1 cap PO DAILY 03/12/19 08/20/23 vitamin E 268 mg (400 unit) capsule 400 unit PO DAILY 03/12/19 08/20/23 hydrochlorothiazide 12.5 mg capsule 12.5 mg PO BID 11/14/19 08/20/23 metoprolol tartrate 50 mg tablet 100 mg PO BID 09/22/20 08/20/23 olmesartan 20 mg tablet 20 mg PO DAILY 09/22/20 08/20/23 potassium chloride PO 09/22/20 08/20/23 Previous Rx's Medication Instructions Recorded ondansetron HCl 4 mg tablet 4 mg PO QID PRN nausea and 01/03/23 vomiting #30 tabs tramadol 50 mg tablet See Rx Instructions PO Q6H PRN 01/16/23 pain #90 tabs Lift Chair #1 ea 08/21/23 meloxicam 7.5 mg tablet 7.5 mg PO DAILY #30 tabs 12/06/23 Results & Data (ED) Vital Signs Vital Signs - 24 hr 03/04/24 02:58 03/04/24 03:11 03/04/24 04:16 Temperature 36.8 C Temperature Source Oral Pulse Rate 88 86 Pulse Rate [Apical] 74 Pulse Rate from SpO2 Sensor Respiratory Rate 18 18 Respiratory Effort / Characteristics Non-Labored Spontaneous Non-Labored Spontaneous Respiratory Depth Normal Normal Respiratory Pattern Regular Regular Blood Pressure 166/96 H Blood Pressure [Left Arm] 142/91 H Blood Pressure Mean 119 Blood Pressure Mean [Left Arm] 108 Pulse Oximetry 99 99 Oxygen Delivery Method Room Air Room Air Sepsis Recent Fever Within 48 Hours No Sepsis New/Unexplained Change in Mental Status N/A Sepsis Action Taken by Nursing No Action Required 03/04/24 04:30 03/04/24 04:40 03/04/24 04:50 Temperature Temperature Source Pulse Rate 76 75 77 Pulse Rate [Apical] Pulse Rate from SpO2 Sensor 75 75 75 Respiratory Rate 16 20 14 Respiratory Effort / Characteristics Respiratory Depth Respiratory Pattern Blood Pressure Blood Pressure [Left Arm] Blood Pressure Mean Blood Pressure Mean [Left Arm] Pulse Oximetry 97 99 100 Oxygen Delivery Method Sepsis Recent Fever Within 48 Hours Sepsis New/Unexplained Change in Mental Status Sepsis Action Taken by Nursing 03/04/24 05:00 03/04/24 05:00 03/04/24 05:10 Temperature Temperature Source Pulse Rate 75 71 Pulse Rate [Apical] 72 Pulse Rate from SpO2 Sensor 77 71 Respiratory Rate 17 23 22 Respiratory Effort / Characteristics Respiratory Depth Respiratory Pattern Blood Pressure Blood Pressure [Left Arm] 133/95 Blood Pressure Mean Blood Pressure Mean [Left Arm] 107 Pulse Oximetry 99 99 100 Oxygen Delivery Method Room Air Sepsis Recent Fever Within 48 Hours Sepsis New/Unexplained Change in Mental Status Sepsis Action Taken by Nursing 03/04/24 05:20 03/04/24 05:29 03/04/24 05:29 Temperature Temperature Source Pulse Rate 71 70 Pulse Rate [Apical] Pulse Rate from SpO2 Sensor 71 70 Respiratory Rate 18 17 Respiratory Effort / Characteristics Respiratory Depth Respiratory Pattern Blood Pressure 133/95 Blood Pressure [Left Arm] Blood Pressure Mean 112 Blood Pressure Mean [Left Arm] Pulse Oximetry 100 99 Oxygen Delivery Method Sepsis Recent Fever Within 48 Hours Sepsis New/Unexplained Change in Mental Status Sepsis Action Taken by Nursing 03/04/24 05:30 03/04/24 05:30 03/04/24 05:40 Temperature Temperature Source Pulse Rate 67 69 Pulse Rate [Apical] Pulse Rate from SpO2 Sensor 67 69 Respiratory Rate 22 16 Respiratory Effort / Characteristics Respiratory Depth Respiratory Pattern Blood Pressure 134/83 Blood Pressure [Left Arm] Blood Pressure Mean 96 Blood Pressure Mean [Left Arm] Pulse Oximetry 99 98 Oxygen Delivery Method Sepsis Recent Fever Within 48 Hours Sepsis New/Unexplained Change in Mental Status Sepsis Action Taken by Nursing 03/04/24 05:50 03/04/24 06:00 03/04/24 06:00 Temperature Temperature Source Pulse Rate 70 70 Pulse Rate [Apical] 67 Pulse Rate from SpO2 Sensor 70 70 Respiratory Rate 15 18 16 Respiratory Effort / Characteristics Respiratory Depth Respiratory Pattern Blood Pressure Blood Pressure [Left Arm] 148/79 H Blood Pressure Mean Blood Pressure Mean [Left Arm] 102 Pulse Oximetry 96 97 97 Oxygen Delivery Method Room Air Sepsis Recent Fever Within 48 Hours Sepsis New/Unexplained Change in Mental Status Sepsis Action Taken by Nursing 03/04/24 06:00 03/04/24 06:10 03/04/24 06:20 Temperature Temperature Source Pulse Rate 66 65 Pulse Rate [Apical] Pulse Rate from SpO2 Sensor 66 65 Respiratory Rate 19 14 Respiratory Effort / Characteristics Respiratory Depth Respiratory Pattern Blood Pressure 148/79 H Blood Pressure [Left Arm] Blood Pressure Mean 102 Blood Pressure Mean [Left Arm] Pulse Oximetry 98 95 Oxygen Delivery Method Sepsis Recent Fever Within 48 Hours Sepsis New/Unexplained Change in Mental Status Sepsis Action Taken by Nursing 03/04/24 06:34 03/04/24 06:40 03/04/24 07:01 Temperature Temperature Source Pulse Rate 67 65 63 Pulse Rate [Apical] Pulse Rate from SpO2 Sensor 67 64 63 Respiratory Rate 15 23 19 Respiratory Effort / Characteristics Respiratory Depth Respiratory Pattern Blood Pressure 159/78 H Blood Pressure [Left Arm] Blood Pressure Mean 105 Blood Pressure Mean [Left Arm] Pulse Oximetry 97 97 97 Oxygen Delivery Method Room Air Sepsis Recent Fever Within 48 Hours Sepsis New/Unexplained Change in Mental Status Sepsis Action Taken by Nursing 03/04/24 07:09 Temperature Temperature Source Pulse Rate 61 Pulse Rate [Apical] Pulse Rate from SpO2 Sensor Respiratory Rate Respiratory Effort / Characteristics Respiratory Depth Respiratory Pattern Blood Pressure Blood Pressure [Left Arm] Blood Pressure Mean Blood Pressure Mean [Left Arm] Pulse Oximetry Oxygen Delivery Method Sepsis Recent Fever Within 48 Hours Sepsis New/Unexplained Change in Mental Status Sepsis Action Taken by Nursing Laboratory Data 03/04/24 03:11 03/04/24 03:11 Lab Results 03/04/24 03/04/24 03/04/24 Range/Units 03:11 04:13 05:03 WBC 4.97 (4.8-10.8) K/ul RBC 4.44 (4.20-5.40) M/uL Hgb 13.5 (12.0-16.0) g/dl Hct 39.8 (37.0-47.0) % MCV 89.6 (80.0-100.0) fL MCH 30.4 (25.0-34.0) pg MCHC 33.9 (32.0-36.0) g/dL RDW Std Deviation 46.5 H (36.4-46.3) fL RDW Coeff of [place] 14.2 (11.5-14.5) % Plt Count 226 (130-400) K/uL MPV 9.8 (9.4-12.4) fL Immature Gran % (Auto) 0.0 % Neut % (Auto) 45.9 % Lymph % (Auto) 39.2 % [place] % (Auto) 10.9 % Eos % (Auto) 3.4 % Baso % (Auto) 0.6 % Neut # (Auto) 2.28 (1.40-6.50) K/uL Lymph # (Auto) 1.95 (1.20-3.40) K/uL Kimble # (Auto) 0.54 (0.11-0.59) K/uL Eos # (Auto) 0.17 (0.00-0.50) K/uL Baso # (Auto) 0.03 (0.00-0.20) K/uL Immature Gran # (Auto) 0.00 L (0.01-0.20) K/uL PT 12.2 H (9.0-12.0) Seconds INR 1.1 (0.9-1.1) APTT 32 H (21-31) Seconds PTT Ratio 1.1 Sodium 140 (136-145) mmol/L Potassium 3.9 (3.5-5.1) mmol/L Chloride 103 (98-107) mmol/L Carbon Dioxide 29 (21-32) mmol/L Anion Gap 8 (3-11) BUN 35 H (6-23) mg/dl Creatinine 1.09 (0.6-1.2) mg/dl Est Cr Clr Drug Dosing 47.2 ml/min Est GFR ( Amer) 55.9 ml/min Est GFR (Non-Af Amer) 48.2 ml/min BUN/Creatinine Ratio 32.1 H (10-20) Glucose 132 H (70-99(Fasting)) mg/dl Calcium 9.8 (8.6-10.3) mg/dl Magnesium 2.1 (1.7-2.4) mg/dl Total Bilirubin 0.4 (0.2-1.0) mg/dl AST 17 (13-39) U/L ALT 13 (7-52) U/L Alkaline Phosphatase 56 (34-104) U/L Troponin I High Sens 5.5 10.0 D (0-14) pg/ml Total Protein 7.2 (6.0-8.3) gm/dl Albumin 4.6 (3.4-5.0) gm/dl Globulin 2.6 (2.5-4.0) gm/dl Albumin/Globulin Ratio 1.8 (0.9-2) Lipase 57 (11-82) U/L TSH 3.038 (0.300-4.500) uIu/ml Urine Color Yellow Urine Appearance Clear (Clear) Urine pH 7.5 (4.5-7.5) Ur Specific [place] 1.008 (1.000-1.030) Urine Protein Negative (Negative) Urine Glucose (UA) Negative (Negative) Urine Ketones Negative (Negative) Urine Blood Negative (Negative) Urine Nitrite Negative (Negative) Urine Bilirubin Negative (Negative) Urine Urobilinogen Negative (Negative) Ur Leukocyte Esterase Negative (Negative) Administered Medications Discontinued Medications Aspirin (Aspirin Chew 324 Mg) 324 mg PO NOW STA Stop: 03/04/24 03:17 Last Admin: 03/04/24 03:23 Dose: 324 mg Documented By: DELIA Sodium Chloride (Nss) 500 mls @ 999 mls/hr IV .Q31M STA Stop: 03/04/24 03:46 Last Infusion: 03/04/24 04:29 Dose: Infused Documented By: Admin: 03/04/24 03:23 Dose: 999 mls/hr Documented By: DELIA Imaging Data Radiologist's Impression: Chest X-Ray 03/04/24 03:16 XR chest 1V portable HISTORY: 78 years-old Female Chest pain, nonspecific COMPARISON: March 12, 2019 TECHNIQUE: AP view of the chest FINDINGS: Cardiac silhouette is enlarged. Large hiatal hernia. No pneumothorax, pleural effusion, airspace consolidation or pulmonary edema. Bones appear grossly intact with severe left glenohumeral osteoarthritis. Cervical spinal fusion hardware. Reverse right shoulder arthroplasty. IMPRESSION: 1. Cardiomegaly without acute process. 2. Large hiatal hernia. ACT 112: Negative or not required by law. The above report was generated using voice recognition software. It may contain grammatical, syntax or spelling errors. Electronically signed by: Aubrey Morataya M.D. 03/04/2024 6:59 AM Discharge Plan Visit Data Chief Complaint: Chest Pain Stated Complaint: CHEST PAIN, PALPITATIONS ED Provider: Joann Graves ED Midlevel Provider: Lili Parks Discharge Problem: Chest pain Patient Disposition: Admitted As Inpatient Condition: Good Forms Stand Alone Forms: [employer] Prescriptions Prescriptions: No Action ondansetron HCl 4 mg tablet 4 mg PO QID PRN (Reason: nausea and vomiting) Qty: 30 3RF tramadol 50 mg tablet See Rx Instructions PO Q6H PRN (Reason: pain) Qty: 90 0RF Rx Instructions: 1 or 2 PO every 6 hours PRN; temp increase meloxicam 7.5 mg tablet 7.5 mg PO DAILY Qty: 30 5RF (DME) Lift Chair Misc See Rx Instructions .Route Qty: 1 0RF Rx Instructions: USE DIRECTED potassium chloride PO olmesartan 20 mg tablet 20 mg PO DAILY chlorhexidine gluconate 0.12 % Mouthwash 15 ml PO HS Rx Instructions: uses 1 capful at hs omeprazole 20 mg Capsule,Delayed Release(Dr/Ec) 20 mg PO DAILY Xarelto 20 mg Tablet 20 mg PO PM vitamin B complex Capsule 1 cap PO DAILY calcium carbonate-vitamin D3 [Caltrate with Vitamin D3] 600 mg(1,500mg) -800 unit Tablet 1 tab PO BID cinnamon bark [Cinnamon] 500 mg Capsule 1,000 mg PO TID omega 2-hvy-til-fish oil [Fish Oil] 1,000 mg (120 mg-180 mg) Capsule 1 cap PO DAILY glucosamine sulfate [Glucosamine] 500 mg Tablet 1,500 mg PO BID chondroitin sulfate A sodium 400 mg Capsule 1,200 mg PO BID Metamucil 3.4 gram/5.4 gram Powder 2 tbsp PO HS methylsulfonylmethane [MSM] 1,000 mg Tablet 1,000 mg PO DAILY multivitamin Tablet 1 tab PO DAILY Systane Balance 0.6 % Drops 1 drp OPHTHALMIC (EYE) BID PRN (Reason: Dry Eyes) ascorbic acid (vitamin C) [Vitamin C] 1,000 mg Tablet Extended Release 1,000 mg PO TID cholecalciferol (vitamin D3) [Vitamin D3] 2,000 unit Capsule 2,000 unit PO DAILY vitamin E 400 unit Capsule 400 unit PO DAILY lidocaine HCl [Aspercreme (lidocaine HCl)] 4 % Cream 1 applic TOPICAL BID PRN (Reason: Pain) hydrochlorothiazide 12.5 mg capsule 12.5 mg PO BID metoprolol tartrate 50 mg tablet 100 mg PO BID Referrals Referrals: Dee Aparicio MD [Primary Care Provider] - Discharge Problem: Chest pain Qualifiers: Chest pain type: unspecified Qualified Code(s): R07.9 - Chest pain, unspecified
[2024-03-04] MEDS: ASPIRIN CHEW 324 MG PO STA (03:23)
[2024-03-04] MEDS: SODIUM CHLORIDE 0.9% 500 ML IV STA (03:23)
[2024-03-04 03:43] LABS: Basophils # (auto) 0.03 K/uL (0.00-0.20); Basophils % (auto) 0.6 %; Eosinophils # (auto) 0.17 K/uL (0.00-0.50); Eosinophils % (auto) 3.4 %; Hematocrit (blood only) 39.8 % (37.0-47.0); Hemoglobin 13.5 g/dl (12.0-16.0); Lymphocytes # (auto) 1.95 K/uL (1.20-3.40); Lymphocytes % (auto) 39.2 %; Mean Corpuscular Hemoglobin 30.4 pg (25.0-34.0); Mean Corpuscular Hgb Conc 33.9 g/dL (32.0-36.0); Mean Corpuscular Volume 89.6 fL (80.0-100.0); Mean Platelet Volume 9.8 fL (9.4-12.4); Monocytes # (auto) 0.54 K/uL (0.11-0.59); Monocytes % (auto) 10.9 %; Neutrophils # (auto) 2.28 K/uL (1.40-6.50); Neutrophils % (auto) 45.9 %; Platelet Count 226 K/uL (130-400); RDW Coefficient of Variation 14.2 % (11.5-14.5); RDW Standard Deviation 46.5 fL (36.4-46.3); Red Blood Count 4.44 M/uL (4.20-5.40); White Blood Count 4.97 K/ul (4.8-10.8)
[2024-03-04 03:46] LABS: Albumin Globulin Ratio 1.8 (0.9-2); Albumin Level 4.6 gm/dl (3.4-5.0); BUN Creatinine Ratio 32.1 (10-20); Bilirubin,Total 0.4 mg/dl (0.2-1.0); Calcium 9.8 mg/dl (8.6-10.3); Creatinine Clr Calc Pharmacy 47.2 ml/min; Est GFR (African American) 55.9 ml/min; Est GFR (Non-African American) 48.2 ml/min; Globulin 2.6 gm/dl (2.5-4.0); Magnesium 2.1 mg/dl (1.7-2.4); Potassium 3.9 mmol/L (3.5-5.1); Total Protein 7.2 gm/dl (6.0-8.3)
[2024-03-04 03:51] LABS: Troponin I High Sensitivity 5.5 pg/ml (0-14)
[2024-03-04 04:01] LABS: Thyroid Stimulating Hormone 3.038 uIu/ml (0.300-4.500)
[2024-03-04 04:05] LABS: INR 1.1 (0.9-1.1); Partial Thromboplastin Ratio 1.1; Partial Thromboplastin Time 32 Seconds (21-31); Prothrombin Time 12.2 Seconds (9.0-12.0)
[2024-03-04 04:23] LABS: Appearance Urine Clear (Clear); Bilirubin Urine Negative (Negative); Blood Urine Negative (Negative); Color Urine Yellow; Glucose Urine UA Negative (Negative); Ketones Urine Negative (Negative); Leukocyte Esterase Urine Negative (Negative); Nitrite Urine Negative (Negative); Protein Urine Negative (Negative); Specific Gravity Urine 1.008 (1.000-1.030); Urobilinogen Urine Negative (Negative); pH Urine 7.5 (4.5-7.5)
--- NOTE | 2024-03-04 07:00 | XRay Report ---
XR chest 1V portable HISTORY: 78 years-old Female Chest pain, nonspecific COMPARISON: March 12, 2019 TECHNIQUE: AP view of the chest FINDINGS: Cardiac silhouette is enlarged. Large hiatal hernia. No pneumothorax, pleural effusion, airspace cons olidation or pulmonary edema. Bones appear grossly intact with severe left glenohumeral osteoarthriti s. Cervical spinal fusion hardware. Reverse right shoulder arthroplasty. IMPRESSION: 1. Cardiomegaly without acute process. 2. Large hiatal hernia. ACT 112: Negative or not required by law. The above report was generated using voice recognition software. It may contain grammatical, syntax o r spelling errors. Electronically signed by: Aubrey Morataya M.D. 03/04/2024 6:59 AM
--- NOTE | 2024-03-04 07:13 | Emergency Department Note ---
ED Visit Note I was consulted by the Advanced Practice Provider. I personally made/approved the management plan and take responsibility for the patient management. I performed a substantive portion of the visit. This includes the aspects of: History/Physical and personally seeing the patient MDM I independently interpreted the following studies: Portable chest x-ray .
[2024-03-04] MEDS ORDERED: METHYLSULFONYLMETHANE 1000 MG PO SCH (09:08)
[2024-03-04] MEDS ORDERED: POLYETHYLENE (MIRALAX) 17 GM PACK PO PRN (09:08)
[2024-03-04] MEDS ORDERED: MAGNESIUM HYDROXIDE SUSP 30 ML UDC PO PRN (09:08)
[2024-03-04] MEDS ORDERED: ALUMINUM/MAGNESIUM SUSP 30 ML UDC PO PRN (09:08)
[2024-03-04] MEDS ORDERED: NON-FORMULARY MEDICATION (Glucosamine Sulfate [Glucosamine] 500 mg Tablet) PO SCH (09:08)
[2024-03-04] MEDS ORDERED: ACETAMINOPHEN 325 MG TAB PO PRN (09:08)
[2024-03-04] MEDS ORDERED: ONDANSETRON INJ 2 MG/ML 2 ML VIAL IV PRN (09:08)
[2024-03-04] MEDS ORDERED: traMADol HCL 50 MG TABLET PO PRN (09:08)
[2024-03-04] MEDS ORDERED: NITROGLYCERIN SL 0.4 MG/TAB TAB SL PRN (09:08)
[2024-03-04] MEDS ORDERED: CHONDROITIN SULFATE A SODIUM 400 MG PO SCH (09:08)
[2024-03-04] MEDS ORDERED: ONDANSETRON 4 MG OD TAB PO PRN (09:18)
[2024-03-04] MEDS: ASPIRIN 81 MG ECTAB PO SCH (10:11)
[2024-03-04] MEDS: METOPROLOL TARTRATE 100 MG TAB PO SCH (10:11)
[2024-03-04] MEDS: hydroCHLOROthiazide 25 MG TAB PO SCH (10:11)
[2024-03-04] MEDS: VITAMIN B COMPLEX TAB PO SCH (10:12)
[2024-03-04] MEDS: LOSARTAN POTASSIUM 50 MG TAB PO SCH (10:12)
[2024-03-04] MEDS: PANTOprazole 40 MG TAB PO SCH (10:12)
[2024-03-04] MEDS: MULTIVITAMIN TAB PO SCH (10:12)
[2024-03-04] MEDS: CHOLECALCIFEROL 25 MCG (1000 UNITS) TAB PO SCH (10:12)
[2024-03-04] MEDS: OMEGA-3 (PURIFIED FISH OIL) 1 GM CAP PO SCH (10:12)
--- NOTE | 2024-03-04 12:42 | Hospitalist Progress Note ---
Date of Service March 04, 2024 Assessment & Plan (1) Chest pain: Plan: - Given history of a-fib, cardioversion, and ablation procedures in the past, one possible cause is A-Fib with RVR. Admitting to med tele to monitor with possible outpatient f/u with cardiology (Dr. Alex). - Continue home regimen of metoprolol, Lasix and Benicar. - CAD as an atypical presentation is another possible etiology - continue monitoring serial troponins and stress ECHO has been scheduled - Given patient's chronic history of GERD, third possible etiology of symptoms. Monitor for acid reflux symptoms and re-start home regimen of omeprazole. Plan Code Status: full code DVT Prophylaxis: continue home medication of rivaroxaban 20 mg tablet Diet: heart healthy diet Disposition: med tele Admission and Anticipated Discharge Date Admission Date: March 04, 2024 Supervising Physician Co-Signing Physician Notes see admission and dc notes Julianna Martinez is a 78-year-old female who presented to the ED for acute onset chest pain and heart palpitations that started at 1:30 AM this morning. The pain is on the left side and radiates to her left jaw. She had associated nausea with it. Nothing had alleviated the pain. Palpitations and chest pain started at the same time. She states that she has heart palpitations every day, but these seem different than her normal palpitations. HR was 122 at the time, 60s-70s typically. Describes it as sharp and 10/10, slight tenderness to palpation. Pain subsided by the time she arrived to the ED. She has a history of A-fib as well as a cardioversion in August 2023 and cardiac ablation in May 2023 per patient. Had filled up with fluid after shoulder replacement, so they did the cardio version/ablation to help it. She currently denies any pain, but is just tired. Abi talked to her about taking Entresto. Typically takes metoprolol before going to bed as she did. Aware of recurrent hiatal hernia, but this was an incidental finding and is asymptomatic. Denies stress/anxiety. Denies infections, recent illnesses, cough/cold medicines. No out of ordinary meds. Denies strenuous exercise. Denies thyroid issues. History of GERD, for which she underwent a Rogelio fundoplication surgery in 1994. Does have history of arthritis all around her body. Review of Systems Review of Systems: As noted in HPI Physical Exam Physical Exam: General: Appears tired, in no acute distress. Cardiovascular: S1 and S2 present. No murmurs, rubs, or gallops. Slight tenderness to palpation in chest area. Respiratory: Clear to auscultation bilaterally. No rales, wheezing, or rhonchi. GI: Normoactive bowel sounds. No tenderness to palpation. No masses appreciated. Extremities: 2+ pitting edema in left lower extremity. Skin: No abnormal lesions visualized. Psych: Appropriate mood and affect. Results & Data Results & Data Vital Signs (Past 12 Hours) Vital Signs Temp Pulse Pulse Resp BP BP Pulse Ox 03/04/24 10:30 62 18 159/84 H 99 03/04/24 10:01 67 12 181/94 H 93 03/04/24 09:31 36.9 C 79 18 98 03/04/24 09:27 03/04/24 09:20 75 24 98 03/04/24 08:00 62 15 154/93 H 97 03/04/24 07:30 61 16 143/85 H 96 03/04/24 07:09 61 03/04/24 07:01 63 19 159/78 H 97 03/04/24 06:40 65 23 97 03/04/24 06:34 67 15 97 03/04/24 06:20 65 14 95 03/04/24 06:10 66 19 98 03/04/24 06:00 148/79 H 03/04/24 06:00 70 16 97 03/04/24 06:00 67 18 148/79 H 97 03/04/24 05:50 70 15 96 03/04/24 05:40 69 16 98 03/04/24 05:30 134/83 03/04/24 05:30 67 22 99 03/04/24 05:29 133/95 03/04/24 05:29 70 17 99 03/04/24 05:20 71 18 100 03/04/24 05:10 71 22 100 03/04/24 05:00 75 23 99 03/04/24 05:00 72 17 133/95 99 03/04/24 04:50 77 14 100 03/04/24 04:40 75 20 99 03/04/24 04:30 76 16 97 03/04/24 04:16 74 18 142/91 H 99 03/04/24 03:11 86 03/04/24 02:58 36.8 C 88 18 166/96 H 99 Pulse Ox O2 Del Method O2 Del Method 03/04/24 10:30 Room Air 03/04/24 10:01 03/04/24 09:31 Room Air 03/04/24 09:27 98 Room Air 03/04/24 09:20 Room Air 03/04/24 08:00 Room Air 03/04/24 07:30 Room Air 03/04/24 07:09 03/04/24 07:01 Room Air 03/04/24 06:40 03/04/24 06:34 03/04/24 06:20 03/04/24 06:10 03/04/24 06:00 03/04/24 06:00 03/04/24 06:00 Room Air 03/04/24 05:50 03/04/24 05:40 03/04/24 05:30 03/04/24 05:30 03/04/24 05:29 03/04/24 05:29 03/04/24 05:20 03/04/24 05:10 03/04/24 05:00 03/04/24 05:00 Room Air 03/04/24 04:50 03/04/24 04:40 03/04/24 04:30 03/04/24 04:16 Room Air 03/04/24 03:11 03/04/24 02:58 Room Air (1) Chest pain Chest pain type: unspecified Qualified Code(s): R07.9 - Chest pain, unspecified
--- NOTE | 2024-03-04 13:24 | Discharge Summary ---
Date of Service March 04, 2024 Admission HPI Per Admitting Provider This 78-year-old female patient presents to the emergency department with her for evaluation of chest pain and heart palpitations that started at 1:30 AM this morning. The pain is on the left side of her chest and radiates to her left jaw. She has a history of A-fib with cardiac ablation in May 2023 and cardioversion in August 2023 per patient. She states that she has heart palpitations every day, but these seem different than her normal palpitations. She does not usually have the chest pressure with her palpitations. The chest pressure lasted for about 1.5 hrs before resolving. Currently she denies any chest pain or pressure and the jaw pain resolved as well. She is on Xarelto. Does not take aspirin and did not have any aspirin today. [place] nausea with the symptoms and had a lot of burping initially, but that seems better. Denies abdominal pain or vomiting. No new back pain, but does have chronic back pain. Denies any new urinary symptoms or new problems with her BMs. She sees Dr. Matt thomas of cardiology. Has not had any workup of her heart since Aug 2023. Admission Exam Per Admitting Provider VITALS: Vitals are noted on the nurse's note and reviewed by myself. GENERAL: Non toxic, no acute distress, non-diaphoretic. SKIN: Capillary refill <2 sec. EYES: PERRLA. EOMI. Conjunctivae without injection, sclerae without icterus. NOSE: Patent without discharge. MOUTH: Mucous membranes moist. Uvula midline. Airway patent. NECK: Supple without nuchal rigidity. HEART: Regular rate and rhythm without murmurs gallops or rubs. LUNGS: Clear to auscultation bilaterally without wheezes, rales or rhonchi. No retractions or accessory muscle use. ABDOMEN: Positive bowel sounds x 4. Normal tympanic percussion. Soft, nontender. No masses or organomegaly. Graves sign negative. No guarding or rebound tenderness. No focal RLQ or LLQ tenderness. MUSCULOSKELETAL: No gross musculoskeletal defects. Bilateral lower extremities are nontender to palpation with no erythema, edema, or warmth. NEURO: Patient was alert and oriented. No focal neurological deficits. Principal Diagnosis Chest pain- likely upper GI source Discharge Exam Per Dr. Finn's attestation Discharge Data Allergies Allergy/AdvReac Type Severity Reaction Status Date / Time adhesive Allergy Mild redness/swe Verified 08/20/23 15:31 lling codeine Allergy Mild vomiting Verified 08/20/23 15:31 morphine Allergy Mild Vomiting Verified 08/20/23 15:31 adhesive tape Allergy Verified 08/20/23 15:31 Consultations 03/04/24 07:39 ED Decision to Admit Stat Hospital Course (1) Chest pain: -Chest pain evaluation negative including troponin negative x2, normal EKG, negative stress exercise echocardiogram -Likely was a burst of A-fib/RVRincrease metoprolol after discussion with primary magnetic prospecting supervisor. (2) Paroxysmal atrial fibrillation: -Noted history of atrial fibrillation with previous ablation procedure -Ongoing palpitations leading up to admission -Remained in sinus rhythm during admission -Regularly following with [facility] cardiology/EP, advised f/u and possible case monitor as outpatient Total Time Total Time Spent Total Time Spent (In Minutes): . Discharge Plan Discharge Items Patient Disposition: Home - Self-Care Reason For Visit: CHEST PRESSURE Discharge Diagnosis: Chest pain, likely due to GERD Condition on Discharge: Good Activity: Resume your previous activity Non-emergency contact: Primary Care Provider and Lay Up Operator Call non-emergency contact if: your symptoms worsen Follow-up/Referrals: Dee Aparicio MD [Primary Care Provider] - Diet: Regular Addtl Attending Provider Instructions: You were admitted to the hospital for chest pain. The evaluation of your chest pain did not suggest a heart-related cause. This was most likely due to acid reflux from GERD. However, your recent palpitations may have some relation to atrial fibrillation and this should be explored further by your PCP and Dr. Alex. A discharge summary will be sent to your primary care physician to ensure continuity of care. Please bring this discharge summary with you to your next office appointment so that your provider can review it at that time. Follow-up appointments: - Make a follow-up appointment with your PCP within the next week. It is very important that you follow up with them shortly after discharge from the hospital. - Please make a follow up with Dr. Alex as well. It may be helpful to discuss cardiac monitoring as outpatient with your PCP and Dr. Alex. - Keep all your follow-up appointments as already scheduled. If you cannot make an appointment, notify your provider. Medications: Your medication list has been reviewed and reconciled upon discharge to ensure accuracy and continuity of care. An updated list of all your medications is included with your hospital discharge paperwork. Please review this list closely, and make note of any ch anges. Take your medications as instructed; do not skip a dose of your medicines. Make sure all of your doctors know every medicine you are taking (including qzmm-zwh-nyporsc medicines, vitamins, and supplements). Call your primary care provider before taking any new medicines (including zlbf-asq-qvcprfi medicines, vitamins, and supplements), because some of these may interact with your current medications, or may make your symptoms worse. Tell your primary care provider if you cannot afford your medications. CONTACT YOUR PRIMARY CARE PROVIDER if you experience any of the following: -Chest tightness -Palpitations -Lightheadedness -Nausea -Dizziness -Difficulty breathing - Difficulty following your treatment plan, or difficulty taking medications CALL 911 OR GO TO THE EMERGENCY DEPARTMENT if you experience any of the following: - Sudden, severe abdominal pain or nausea/vomiting - Severe chest pain, or chest pain that radiates (moves) to your jaw or arm - Sudden, severe shortness of breath or difficulty breathing Thank you for allowing us to participate in your care Pending Studies at Discharge: No Stand-Alone Forms: My [facility] Medications and DC Order Prescriptions: Continued ondansetron HCl 4 mg tablet 4 mg PO QID PRN (Reason: nausea and vomiting) Qty: 30 3RF Rx Instructions: unable to verify with pharmacy 03/04/24 tramadol 50 mg tablet See Rx Instructions PO Q6H PRN (Reason: pain) Qty: 90 0RF Rx Instructions: unable to verify with pharmacy 03/04/24 1 or 2 PO every 6 hours PRN; temp increase meloxicam 7.5 mg tablet 7.5 mg PO DAILY Qty: 30 5RF (DME) Lift Chair Misc See Rx Instructions .Route Qty: 1 0RF Rx Instructions: USE DIRECTED olmesartan 20 mg tablet 40 mg PO DAILY chlorhexidine gluconate 0.12 % Mouthwash 15 ml PO HS Rx Instructions: uses 1 capful at hs omeprazole 20 mg Capsule,Delayed Release(Dr/Ec) 20 mg PO DAILY Xarelto 20 mg Tablet 0 mg PO UD Rx Instructions: on hold at pharmacy 03/04/24 directions: 1 tab po pm vitamin B complex Capsule 1 cap PO DAILY Rx Instructions: unable to verify OTC 03/04/24 calcium carbonate-vitamin D3 [Caltrate with Vitamin D3] 600 mg(1,500mg) -800 unit Tablet 1 tab PO BID Rx Instructions: unable to verify OTC 03/04/24 cinnamon bark [Cinnamon] 500 mg Capsule 1,000 mg PO TID Rx Instructions: unable to verify OTC 03/04/24 omega 4-acp-lpl-fish oil [Fish Oil] 1,000 mg (120 mg-180 mg) Capsule 1 cap PO DAILY Rx Instructions: unable to verify OTC 03/04/24 glucosamine sulfate [Glucosamine] 500 mg Tablet 1,500 mg PO BID Rx Instructions: unable to verify OTC 03/04/24 chondroitin sulfate A sodium 400 mg Capsule 1,200 mg PO BID Rx Instructions: unable to verify OTC 03/04/24 Metamucil 3.4 gram/5.4 gram Powder 2 tbsp PO HS Rx Instructions: unable to verify OTC 03/04/24 multivitamin Tablet 1 tab PO DAILY Rx Instructions: unable to verify OTC 03/04/24 Systane Balance 0.6 % Drops 1 drp OPHTHALMIC (EYE) BID PRN (Reason: Dry Eyes) Rx Instructions: unable to verify with pharmacy 03/04/24 Vitamin C 1,000 mg Tablet Extended Release 1,000 mg PO TID Rx Instructions: unable to verify OTC 03/04/24 cholecalciferol (vitamin D3) [Vitamin D3] 2,000 unit Capsule 2,000 unit PO DAILY Rx Instructions: unable to verify OTC 03/04/24 vitamin E 400 unit Capsule 400 unit PO DAILY Rx Instructions: unable to verify OTC 03/04/24 lidocaine HCl [Aspercreme (lidocaine HCl)] 4 % Cream 1 applic TOPICAL BID PRN (Reason: Pain) Rx Instructions: unable to verify OTC 03/04/24 hydrochlorothiazide 12.5 mg capsule 0 mg PO UD Rx Instructions: On hold at pharmacy 03/04/24 Directions: 25 mg daily, may take one extra as needed for worsening lower edema furosemide 20 mg tablet 20 mg PO DAILY Changed metoprolol succinate 25 mg tablet extended release 24 hr 50 mg PO HS Qty: 60 0RF Discharge Orders: Discharge Order (Routine); Ordered 03/04/24 Ordered By: Marques Monzon Admission Data Admit Date/Time: 03/04/24 07:34 Attending Provider: Ha Finnit Provider: Ha Finn Primary Care Provider: Dee Aparicio Other Providers: Ha Finn Other Interventions: Discharge Summary Assessment (RN) Last Done: 03/04/24 15:25 Supervising Physician Co-Signing Physician Notes I personally examined the patient and verified all merino points of history and exam, discussed case, and agree with decision making with Dr Monzon Feeling better. Feels up to going home. Extensive discussion with patient and daughtersuspect palpitations were a burst of A-fib/RVR that self abated (versus other similar atrial arrhythmias)safe/stable for home. After discussion with her primary magnetic prospecting supervisor, increase her metoprolol to 50 mg nightly. Outpatient follow-up with PCP and primary magnetic prospecting supervisor.
--- OUTSIDE RECORDS SUMMARY | 2024-03-04 14:44 | External Medical Summary | Continuity of Care Document ---
Author Name Unknown Organization [address] Address [address], [place] [id number] Care Team Providers Care Showcase Maker Name Role Phone Dee Aparicio Primary Care Physician [phone] [id number] Date(s): 01/06/24 - 01/06/24 [facility] [address], [address] [place] [phone] Discharge Disposition: Home or Self Care Attending Physician: DO Alex Jason D Referring Physician: MD Karyn, Annabel Andino Allergies, Adverse Reactions, Alerts Substance Reaction Severity Status codeine nausea vomiting Active oxyCODONE nausea Active Percocet n/v Active Tape reddness Active Darvocet-N 100 nausea vomiting Active Morphine Sulfate n/v Mild Active Medications Cathy Start: 10/29/22 15:10:00 EST, 30 mg =, PO, Daily Start Date: 10/29/22 Status: Ordered amoxicillin 500 mg oral capsule Start: 07/30/23 15:15:00 EDT, 4 cap, PO, As indicated, Disp# 12 cap, Refills: 3, one hour before dental and other procedures as directed, Pharmacy: [facility] Start Date: 07/30/23 Status: Ordered Aspercreme with Lidocaine Start: 08/01/17 13:45:00, See Instructions, uses on knee and lower back once or twice daily Start Date: 08/01/17 Status: Ordered Benicar 20 mg oral tablet Start: 05/15/23 11:12:00 EDT, 2 tab, PO, Daily, Disp# 180 tab, Refills: 3, Pharmacy: [facility] Start Date: 05/15/23 Status: Ordered Calcium 600+D Start: 04/14/10 13:30:12, 1 tab, PO, bid, Refills: 0, current medication from another provider Start Date: 04/14/10 Status: Ordered chlorhexidine 0.12% oral rinse Start: 04/11/17 14:20:00, 15 mL, PO, Daily Start Date: 04/11/17 Status: Ordered chondroitin/glucosamine/methylsulfonylmethane Start: 04/14/10 13:30:13, 1 tab, PO, bid, Refills: 0, current medication from another provider Start Date: 04/14/10 Status: Ordered cinnamon 500 mg oral capsule Start: 12/17/17 15:06:00, 6 cap, PO, Daily Start Date: 12/17/17 Status: Ordered collagen topical powder Start: 04/10/22 10:16:00 EDT, collagen powder 1 scoop daily Start Date: 04/10/22 Status: Ordered diflunisal 500 mg oral tablet Start: 09/19/23 13:20:00 EST, 1 tab, PO, q12h, Disp# 60 tab, Refills: 1, Pharmacy: [facility] Start Date: 09/19/23 Stop Date: 11/18/23 Status: Ordered Fish Oil 1000 mg oral capsule Start: 12/17/17 15:06:00, 3 cap, PO, Daily Start Date: 12/17/17 Status: Ordered furosemide 20 mg oral tablet Start: 09/02/23 9:27:00 EDT, 1 tab, PO, Daily, Disp# 90 tab, Refills: 3, Pharmacy: [facility] Start Date: 09/02/23 Status: Ordered magnesium amino acids chelate 100 mg oral tablet Start: 12/05/21 15:29:00 EST, 2 tab, PO, bid Start Date: 12/05/21 Status: Ordered multivitamin Start: 09/20/10 11:56:34, 1 tab, PO, Daily, Refills: 0, current medication from another provider Start Date: 09/20/10 Status: Ordered NuLYTELY with Flavor Packs oral powder for reconstitution Start: 06/28/23 14:50:00 EDT, See Instructions, Disp# 1 kit, Refills: 0, Follow Endoscopy intrructions, Pharmacy: [facility], Earliest Fill Date: 06/28/23 Start Date: 06/28/23 Status: Ordered omeprazole 20 mg oral delayed release capsule Start: 04/01/23 8:17:00 EDT, See Instructions, Disp# 90 cap, Refills: 3, TAKE 1 CAPSULE BY MOUTH DAILY, Pharmacy: [facility] Start Date: 04/01/23 Status: Ordered potassium ACETATE Start: 12/09/20 11:07:00 EST, 1 tab, PO, three times a week Start Date: 12/09/20 Status: Ordered rivaroxaban 20 mg oral tablet Start: 06/12/23 15:26:00 EDT, 1 tab, PO, qPM, Disp# 90 tab, other Start Date: 06/12/23 Status: Ordered Systane Balance ophthalmic solution Start: 11/27/16 15:06:00, 2 drop, both eyes, tid, PRN: as needed for dry eyes Start Date: 11/27/16 Status: Ordered Toprol-XL 25 mg oral tablet, extended release Start: 04/01/23 11:46:00 EDT, 1 tab, PO, qhs, Disp# 90 tab, Refills: 3, Pharmacy: [facility] Start Date: 04/01/23 Status: Ordered Tylenol Start: 04/01/23 11:23:00 EDT, 325 mg =, PO, q4h Start Date: 04/01/23 Status: Ordered unknown medication Start: 02/09/21 13:46:00 EDT, Note to Pharmacy: MSM supplement Start Date: 02/09/21 Status: Ordered Vitamin B Complex oral capsule Start: 04/14/10 13:30:21, 1 cap, PO, Daily, Refills: 0, current medication from another provider Start Date: 04/14/10 Status: Ordered Vitamin B12 Start: 05/24/21 13:16:00 EDT, PO, Daily, patient unsure of dose Start Date: 05/24/21 Status: Ordered Vitamin C 500 mg oral tablet, chewable Start: 04/14/10 13:30:22 EDT, 2 tab, PO, tid, Refills: 0, current medication from another provider Start Date: 04/14/10 Status: Ordered Vitamin D3 2000 intl units oral tablet Start: 03/23/15 13:30:00, 1 tab, PO, Daily Start Date: 03/23/15 Status: Ordered vitamin E 400 intl units oral capsule Start: 12/17/17 15:07:00, 1 cap, PO, Daily Start Date: 12/17/17 Status: Ordered ZyrTEC 10 mg oral tablet Start: 07/12/20 13:48:00 EDT, 1 tab, PO, Daily Start Date: 07/12/20 Status: Ordered Problem List Condition Confirmation Course Effective Dates Status H ealth Status Informant ALLERGIC RHINITIS Confirmed Active Arthritis of right shoulder region Confirmed Active Afib Confirmed Active 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 Confirmed Active Chronic osteoarthritis Confirmed Active Delayed emergence from anesthesia Confirmed Active Nail dystrophy Confirmed Active Epidermal cyst Confirmed Active Exploration of nipple 2 Confirmed Active Eye fluid Confirmed Active H/O: arthritis Confirmed Active S/P ablation of atrial fibrillation Confirmed Active H/O: back problem Confirmed Active Hiatal hernia Confirmed Active 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 Confirmed Active COVID-19 vaccine series completed Confirmed Active HYPERTENSION Confirmed Active Knee pain, left Confirmed Active Nipple discharge symptom Confirmed Active Nocturia more than twice per night Confirmed Active Apnea, sleep Confirmed Active Retained orthopedic hardware Confirmed Active Osteoarthritis of right glenohumeral joint Confirmed Active Atrial fibrillation Confirmed Active Preop examination Confirmed Active PONV (postoperative nausea and vomiting) Confirmed Active Conversion type Confirmed Active Seborrheic keratoses Confirmed Active Sleep apnea Confirmed Active Hepatic steatosis Confirmed Active Pilar cyst Confirmed Active Urge incontinence Confirmed Active Urinary urgency Confirmed Active Urinary incontinence in female Confirmed Active Weight disorder Confirmed Active 07958. Requires pap smears until 202708/06/10- left nipple exploration and excision Procedures Procedure Date Related Diagnosis Body Site Status ARTHROPLASTY REVERSE SHOULDER 1 04/17/23 Completed Excision 11/22/22 Completed Cardioversion 2022 Completed UDS - Urodynamics 06/27/22 [facility] ed Surgery 2 12/22/20 Completed Cystourethroscopy 12/09/19 [facility] ed Posterior colporrhaphy 12/09/19 Co mpleted Sling procedure of bladder neck 12/09/19 Completed Uterosacral ligament 12/09/19 Comp leted Vaginal hysterectomy 12/09/19 Comp leted cardioversion 2018 Completed left total knee arthroplasty 3 08/19/17 Completed Hip arthroplasty right total 02/27/16 Completed Colonoscopy 03/31/15 Completed Bilateral cataracts 2014 Compl eted LEEP procedure of cervix 2007 Completed right breast palanoma removal 2006 Completed carpal tunnel - right hand 01/2000 Completed cervical spine surgery 1999 Co mpleted D&C - Dilatation and curetta ge, multiple 1999 Completed carpal tunnel surgery left hand 02/1999 Completed lumbar surgery - instrumenta tion - laminectomy 1998 Completed esophagus - hyatal hernia remaval 03/1995 Completed gallbladder removal 03/1995 Compl eted Tubal ligation 1979 Completed 1auto-populated from documented surgical case 2spinal surgery 3Left total knee arthroplasty. 4CIN2 Social History Social History Type Response Smoking Status Never smoked cigaret sarah Sex Female Implantable Device List Procedure Provider Procedure Date Device Type Site Unknown Unknown 04/17/23 Unknown Unknown Device Identifier Serial Number Lot or Batch Number Manufacturing Date Expiration Date Distinct Identification Code MRI Safety Implantable Status Assigning Authority Unknown Unknown [id number] Unknown 09/04/23 Unknown Unknown Active Un known Unknown Unknown [id number] Unknown 10/10/24 Unknown Unknown Active Unknown Unknown Unknown n/a Unknown Unknown Unknown Unknown Active Unkn own Unknown Unknown n/a Unknown Unknown Unknown Unknown Active Unkn own Unknown Unknown n/a Unknown 01/19/28 Unknown Unknown Active Unkn own Unknown Unknown n/a Unknown 12/31/27 Unknown Unknown Active Unkn own Unknown Unknown n/a Unknown 01/17/28 Unknown Unknown Active Unkno wn Procedure Provider Procedure Date Device Type Site Unknown Unknown 12/09/19 Unknown Unknown Device Identifier Serial Number Lot or Batch Number Manufacturing Date Expiration Date Distinct Identification Code MRI Safety Implantable Status Assigning Authority Unknown Unknown [id number] Unknown 11/16/22 Unknown Unknown Active Unknown Patient Care team information Care Team Personnel Name: MD Aparicio Tamar Position: Referring Member Role: Primary Care Provider Address: Address: [address] [place] [id number] [place] Care Team Related Persons Name: DUNCAN CALLAWAY Address: home [address] [place] [phone]
--- OUTSIDE RECORDS SUMMARY | 2024-03-04 14:44 | External Medical Summary | Continuity of Care Document ---
Author Name Unknown Organization [address] Address [address] [place], [place] [address] Care Team Providers Care Certified Legal Secretary Specialist Name Role Phone Dee Aparicio Primary Care Physician [phone] [id number] Date(s): 01/15/24 - 01/15/24 [facility] [address], [address] [place] [address] [phone] Discharge Disposition: Home or Self Care Attending Physician: MD Alber, Manuel Ornelas Referring Physician: MD Alber, Manuel Ornelas Allergies, Adverse Reactions, Alerts Substance Reaction Severity [...] q12h, Disp# 60 tab, Refills: 1, Pharmacy: [facility] Start Date: 09/19/23 Stop Date: 11/18/23 [...] kit, Refills: 0, Follow Endoscopy intrructions, Pharmacy: [facility], Earliest Fill Date: 06/28/23 Start Date: 06/28/23 [...] Osteoarthritis of right glenohumeral joint Confirmed Active 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 Requires pap smears until 202708/06/10- left nipple exploration and excision Procedures Procedure Date Related Diagnosis Body Site Status ARTHROPLASTY REVERSE SHOULDER 1 04/17/23 Completed Excision 11/22/22 Completed Cardioversion 2022 Completed UDS - Urodynamics 06/27/22 Complet ed Surgery 2 12/22/20 Completed Cystourethroscopy 12/09/19 Complet ed Posterior colporrhaphy 12/09/19 Co mpleted Sling [...] Safety Implantable Status Assigning Authority Unknown Unknown [id number] Unknown 09/04/23 Unknown Unknown Active Un known Unknown Unknown [id number] Unknown 10/10/24 Unknown Unknown Active Unknown [...] Safety Implantable Status Assigning Authority Unknown Unknown [id number] Unknown 11/16/22 Unknown Unknown Active Unknown Patient Care team information Care Team Personnel Name: MD Aparicio Tamar Position: Referring Member Role: Primary Care Provider Address: Address: [address] [place] [address] [place] Care Team Related Persons Name: DUNCAN CALLAWAY Address: home [address] [place] [address], [phone]
--- OUTSIDE RECORDS SUMMARY | 2024-03-04 14:44 | External Medical Summary | Continuity of Care Document ---
Author Name Unknown Organization [facility] [address] [facility] [address] [place] [phone] Care Team Providers Care Breaker Hand Name Role Phone Dee Aparicio Primary Care Physician [phone] [facility] [id number] Date(s): 01/16/24 - 01/16/24 [facility] [address] [facility] 30 [facility], [address] [place] [address] [phone] Encounter Diagnosis Pain due to total left knee replacement(Discharge Diagnosis) - 01/15/24 Discharge Disposition: Home or Self Care Attending Physician: MD Lam Charles M Referring Physician: CANDIDO Hernandez, Debora Andino Allergies, Adverse Reactions, Alerts Substance Reaction Severity Status codeine nausea vomiting Active oxyCODONE nausea Active Percocet n/v Active Tape reddness Active Darvocet-N 100 nausea vomiting Active Morphine Sulfate n/v Mild Active Assessment and Plan Extracted from: Title:Clinical Document Author:MD Lam Charle s M Date:01/16/24 OUTPATIENT NOTE Name: JOAQUIN CALLAWAY Patient Number:[id number] : 1945 Date of Service: 01/16/2024 Patient was seen and examined with Dr. Samson. She had some pain at her last visit about her left knee. She is on physical therapy. Since that and her pain has resolved. On examination today range of motion is from about 5 to 115 degrees and her knee is stable. I did review her x-rays from October as well as report and is no obvious mechanical complication. She is doing well at this point she can be as active as she would like and return again in 3 years to see Ms. De La Paz with new x-rays of her left knee per protocol. _ Extracted from: Title:Follow Up Visit Author:Mali Palacios MD, Vi ncenzo Date:01/16/24 78-year-old female with hist ory of left total knee arthroplasty by Dr. Lam in 2017presented with acute onsetofanterior based knee painroughly 2 months ago likely due to patellar tendinitisthat completely resolved with physical therapy, doing well in the postoperative setting. Evaluated with Dr. Lam Continue activitiesas tolerated, continue work on stretching, strengthening, range of motion left knee Physical therapy as needed We discussed ruyx-anc-[id number] pain medications Please cancel her previously scheduled follow-up appointments and schedule a 3- year follow-up with Dr. Lam with left knee radiographs via Ortho protocol views All of their questions were answered. They will call back with any comments, questions, or concerns. Disclaimer: This documentation was prepared (fully or partially) utilizing [employer] Speech Recognition software. No method of documentation is perfect. Grammatical errors, random word insertions, pronoun errors and incomplete sentences are occasional consequences of the system due to software/hardware limitations and/or ambient noise. Effort is given to identify and correct these errors during the course of the documentation but it is not always able to capture every error. Any questions or concerns about the context contained within this documentation should be directed to the provider for clarification through PowerChart or via our office at [phone]. Medications Cathy Start: 10/29/22 15:10:00 EST, 30 mg =, PO, Daily Start Date: 10/29/22 Status: Ordered amoxicillin 500 mg oral capsule Start: 07/30/23 15:15:00 EDT, 4 cap, PO, As indicated, Disp# 12 cap, Refills: 3, one hour before dental and other procedures as directed, Pharmacy: [facility] Start Date: 07/30/23 Status: Ordered Aspercreme [...] q12h, Disp# 60 tab, Refills: 1, Pharmacy: [facility] Start Date: 09/19/23 Stop Date: 11/18/23 Status: Ordered Fish Oil 1000 mg oral capsule Start: 12/17/17 15:06:00, 3 cap, PO, Daily Start Date: 12/17/17 Status: Ordered furosemide 20 mg oral tablet Start: 09/02/23 9:27:00 EDT, 1 tab, PO, Daily, Disp# 90 tab, Refills: 3, Pharmacy: [facility] Start Date: 09/02/23 Status: Ordered magnesium [...] kit, Refills: 0, Follow Endoscopy intrructions, Pharmacy: [facility], Earliest Fill Date: 06/28/23 Start Date: 06/28/23 [...] PO, Daily Start Date: 07/12/20 Status: Ordered Mental Status 01/16/24 Barriers to Learning one year Vision imp airment, Other: wears glasses Mandatory Health Literacy Documentation Yes Health Literacy Communication Barriers N ever Primary Language [place]se Problem List Condition Confirmation Course Effective Dates [...] female Confirmed Active Weight disorder Confirmed Active 10543. 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 Discharge Diagnosis 01/15/24 Procedures Procedure Date Related Diagnosis Body Site Status ARTHROPLASTY REVERSE SHOULDER 1 04/17/23 Completed Excision 11/22/22 Completed Cardioversion 2022 Completed UDS - Urodynamics 06/27/22 [facility] ed Surgery 2 12/22/20 Completed Cystourethroscopy 12/09/19 [facility] ed Posterior colporrhaphy 12/09/19 Co [...] Safety Implantable Status Assigning Authority Unknown Unknown [id number] Unknown 09/04/23 Unknown Unknown Active Un known Unknown Unknown [id number] Unknown 10/10/24 Unknown Unknown Active Unknown [...] Safety Implantable Status Assigning Authority Unknown Unknown [id number] Unknown 11/16/22 Unknown Unknown Active Unknown Outpatient Note * MD Genaro, Antonio Andino: PERFORM Event Display: .Outpt Note Authored Date: [id number] OUTPATIENT NOTE Name: JOAQUIN CALLAWAY Patient Number:1 [id number] : 1945 Date of Service: 01/16/2024 Patient was seen and examined with Dr. Samson. She had some pain at her last visit about her leftknee. She is on physical therapy. Since that and her pain has resolved. On examination today range of motion is from about 5 to 115 degrees and her knee is stable. I did review her x-rays from October as well as report and is no obvious mechanical complication. She is doing well at this point she can be as active as she would like and return again in 3 years to see Ms. De La Paz with new x-rays of her left knee per protocol. _ Electronic Signature on File Electronically Reviewed/Signed by: Antonio Lam III, MD, PhD Author Signature Dt/Tm:01/16/2024 04:01 PM Professor, Orthopaedics [facility] [address] [place] [address], [facility] [place] [id number] CMD * Mali Palacios MD, Johny: PERFORM, MODIFY, MODIFY Event Display: Ortho Outpt Note Authored Date: [id number] Chief Complaint follow up on left knee Primary Care Provider MD Markus, Dee Subjective 78 yearold female with history of a left total knee arthroplasty by Dr. Lam in 2016 presents today in follow-up regarding left knee pain. She was seen by Debora Hernandez PA-C,on 11/01/2023 after the acute onset of left anterior based knee pain. She statedthat she was havingthe sensationof lightening striking over the anterior aspect of the knee. It was constant but worse with weightbearing activities and came and went. No hip or back pain, no numbness or tingling in the left lower extremity. At that time, inflammatory markers were obtained which were normal and there is no concern for infection as the incision had previously healedthere is no large joint effusion. Previous radiographs were stable. She was given a course of physical therapyto work on stretching, strengthening, range of motion of the left knee. States that she went to physical therapy and overthe last2 and half months her anterior based left knee pain has completely resolved. She deniesany pain about the areaand is overall doing extremely well and has no complaints. Review of Systems Denies fevers, chills, N/V, CP, SOB,OLVERA, abdominal pain, numbness/tingling/weakness in extremities. Rest of ROS negative. Objective Physical Exam Sitting comfortably in the chair, no acute distress. Extremities are warm and well-perfused. Breathing comfortably on room air at roughly 16 breaths/min. No vascular or lymphatic changes of bilateral upper or lower extremities. Mood and affect are appropriate. Muscle tone and bulk are appropriate. Ambulates with a nonantalgic gait. Motor and sensory are grossly intact bilateral upper and lower extremities.On valuation of her left knee,anterior based incision is clean, dry, intact. There is no signs of infection. No drainage. Range of motion is 5 to 115 degrees, painless throughout the arc of motion. Nontender palpation diffusely about the knee. Stableon varusand valgus stress testing throughout the arc of motion. Otherwise neurovascularly intact. Diagnostic Results Previously obtained left knee radiographs were reviewed independently with Dr. Lam demonstrating no hardware complication, no subsidence,satisfactory alignment Assessment/Plan 78-year-old female with history of left total knee arthroplasty by Dr. Lam in 2017presented with acute onsetofanterior based knee painroughly 2 months ago likely due to patellar tendinitisthat completely resolved with physical therapy, doing well in the postoperative setting. Evaluated with Dr. Lam Continue activitiesas tolerated, continue work on stretching, strengthening, range of motion leftknee Physical therapy as needed We discussed [id number]-[id number] pain medications Please cancel her previously scheduled follow-up appointments and schedule a 3- year follow-up with Dr. Lam with left knee radiographs via Ortho protocol views All of their questions were answered. They will call back with any comments, questions, or concerns. Disclaimer: This documentation was prepared (fully or partially) utilizing [employer] Speech Recognition software. No method of documentation is perfect. Grammatical errors, random word insertions, pronoun errors and incomplete sentences are occasional consequences of the system due to software/hardware limitations and/or ambient noise. Effort is given to identify and correct these errors during the course of the documentation but it is not always able to capture every error. Any questions or concerns about the context contained within this documentation should be directed to the provider forclarification through [employer] or via our office at [phone]. Electronic Signature on File Electronically Reviewed/Signed by: Johny Samson MD Author Signature Dt/Tm:01/16/2024 08:47 PM Resident Division of Orthopaedics Electronically Reviewed/Signed by: Antonio Lam III, MD, PhD Cosigner Signature Dt/Tm: 01/17/2024 02:30 PM Professor, Orthopaedics [facility] 30 [facility], [facility] [place] [id number] Patient Care team information Care Team Personnel Name: MD Aparicio Tamar Position: Referring Member Role: Primary Care Provider Address: Address: [address] [place] [address] Care Team Related Persons Name: DUNCAN CALLAWAY Address: home [address] [place] [address], [phone]
--- OUTSIDE RECORDS SUMMARY | 2024-03-04 14:45 | External Medical Summary | Continuity of Care Document ---
Author Name Unknown Organization [facility] [address] [place], [place] [id number] Care Team Providers Care Astronomy Professor Name Role Phone Dee Aparicio Primary Care Physician [phone] [facility] [id number] Date(s): 10/31/23 - 10/31/23 [facility] [address] [facility] 303 [facility], [facility] 1 [place], [place] [phone] Encounter Diagnosis Pain in left knee(Final) - Discharge Disposition: Home or Self Care Attending Physician: CANDIDO Hernandez Emily M Referring Physician: CANDIDO Hernandez Emily M Allergies, Adverse Reactions, Alerts Substance Reaction Severity [...] q12h, Disp# 60 tab, Refills: 1, Pharmacy: [facility] Start Date: 09/19/23 Stop Date: 11/18/23 [...] kit, Refills: 0, Follow Endoscopy intrructions, Pharmacy: [facility], Earliest Fill Date: 06/28/23 Start Date: [...] female Confirmed Active Weight disorder Confirmed Active 24341. Requires pap smears until 202708/06/10- left nipple [...] 2spinal surgery 3Left total knee arthroplasty. 4CIN2 Results Laboratory List Name Date C Reactive Protein, Quantitation (CRP QU ANTITATION) 10/31/23 Erythrocyte Sedimentation Rate (SEDIMENT ATION RATE) 10/31/23 Most recent to oldest [Reference Range]: 1 CReacProt [<0.50 mg/dL] <0.30 mg/dL (10/31/23 2:28 PM) ESR [0-50 mm/hr] 17 mm/hr 1 (10/31/23 2:28 PM) 1Result Comment: Testing Performed By: [facility] [address], [place] [address] Social History Social History Type Response Smoking Status Never smoked cigaret sarah Sex Female Implantable Device List Procedure Provider Procedure Date Device Type Site Unknown Unknown 04/17/23 Unknown Unknown Device Identifier Serial Number Lot or Batch Number Manufacturing Date Expiration Date Distinct Identification Code MRI Safety Implantable Status Assigning Authority Unknown Unknown [id number] Unknown 09/04/23 Unknown Unknown Active Un known Unknown Unknown [id number] a Unknown 10/10/24 Unknown Unknown Active Unknown [...] Safety Implantable Status Assigning Authority Unknown Unknown [id number] Unknown 11/16/22 Unknown Unknown Active Unknown Patient Care team information Care Team Personnel Name: MD pAaricio Tamar Position: Referring Member Role: Primary Care Provider Address: Address: [address] [place] [address] [place] Care Team Related Persons Name: DUNCAN CALLAWAY Address: home [address] [place] [address] KARI PRASAD, [phone]
--- OUTSIDE RECORDS SUMMARY | 2024-03-04 14:45 | External Medical Summary | Continuity of Care Document ---
Author Name Unknown Organization [facility] [address] Address 30 [facility] [address] DIANE ZAVALA [phone] Care Team Providers Care Payroll Bookkeeper Name Role Phone Dee Aparicio Primary Care Physician [phone] Encounter [facility] ETHELHUMZA [id number] Date(s): 10/30/23 - 10/30/23 [facility] [address] [facility] [place] [address] [facility], [facility] [address], [address] [place]ala [address] [phone] Encounter Diagnosis History of total left knee replacement(Discharge Diagnosis) - 10/30/23 Discharge Disposition: Home or Self Care Attending Physician: CANDIDO Hernandez Emily M Allergies, Adverse Reactions, Alerts Substance Reaction Severity Status codeine nausea vomiting Active oxyCODONE nausea Active Percocet n/v Active Tape reddness Active Darvocet-N 100 nausea vomiting Active Morphine Sulfate n/v Mild Active Assessment and Plan Extracted from: Title:Clinical Document Author:CANDIDO Hernandez Emi ly M Date:11/01/23 OUTPATIENT NOTE Name: JAOQUIN CALLAWAY Patient Number:1 [id number] : 1945 Date of Service: 10/30/2023 CHIEF COMPLAINT: Left knee pain HPI: Patient is a 78-year-old female presenting for evaluation of her left knee. She underwent a left total knee arthroplasty by Dr. Lam in 2017. Over the last couple of weeks she has noticed increased left knee discomfort. She denies any injury or trauma or change in her overall activity level. Pain is generalized over the anterior aspect and reports a lightening sensation at times. Pain is fairly constant but worsened by prolonged weightbearing. She denies any associated hip or back discomfort. No lower extremity paresthesias. No sense of instability about the knee. No problems with the incision. No fever chills or night sweats. PHYSICAL EXAMINATION: Patient is alert and oriented 78-year-old female appears to be in no acute distress. She ambulates with a nonantalgic gait on the left side without use of gait aid. On examination of the left knee, well-healed anterior based knee and vision. She has some generalized tenderness to palpation with no obvious joint effusion. Left knee range of motion is 0-110, stable in extension but some medial lateral laxity in mid flexion. Painless passive range of motion about the left hip, well-maintained throughout motion. Negative Stinchfield test. Left lower extremity strength is otherwise intact. IMAGING: Left knee radiographs reviewed revealing stable left total knee arthroplasty without evidence of hardware complication. IMPRESSION: Left knee pain x 2 weeks PLAN: Quite hide patient presents for evaluation of 2-week history of left knee discomfort about her left total knee arthroplasty. I would like to obtain some baseline inflammatory markers to rule out infection. Exam and radiographs are otherwise unremarkable. Will trial some physical therapy if and laboratory markers are normal and I will have her follow-up with Dr. Lam thereafter in about 6 to 8 weeks. Should she have any new or worsening symptoms in the interim she will call our office. She may use [id number] pain relievers in the meantime. All questions answered. Medications Cathy Start: 10/29/22 15:10:00 EST, 30 [...] q12h, Disp# 60 tab, Refills: 1, Pharmacy: [facility] Start Date: 09/19/23 Stop Date: 11/18/23 Status: Ordered Fish Oil 1000 mg oral capsule Start: 12/17/17 15:06:00, 3 cap, PO, Daily Start Date: 12/17/17 Status: Ordered furosemide 20 mg oral tablet Start: 09/02/23 9:27:00 EDT, 1 tab, PO, Daily, Disp# 90 tab, Refills: 3, Pharmacy: [facility] Start Date: 09/02/23 Status: Ordered magnesium [...] kit, Refills: 0, Follow Endoscopy intrructions, Pharmacy: [facility], Earliest Fill Date: 06/28/23 Start Date: [...] Start Date: 07/12/20 Status: Ordered Mental Status 10/30/23 Barriers to Learning one year Vision imp airment, Other: wears glasses Mandatory Health Literacy Documentation Yes Health Literacy Communication Barriers N ever Primary Language Slovak Problem List Condition Confirmation Course Effective Dates [...] female Confirmed Active Weight disorder Confirmed Active 73128. Requires pap smears until 202708/06/10- left nipple exploration and excision Diagnosis Diagnosis Type Effective Dates Health Status Clinical Service Informant History of total left knee replacement Discharge Diagnosis 10/30/23 Knee pain, left 10/30/23 Non-Specified Knee pain, left 10/30/23 Non-Specified Procedures Procedure Date Related Diagnosis Body Site [...] 2014 Compl eted LEEP procedure of cervix 4 2007 Completed right breast palanoma removal 2006 [...] surgery 3Left total knee arthroplasty. 4CIN2 Results Radiology Reports * Exam Date Time Procedure Performing Provider Status 10/30/23 10:37 AM XR Knee 3 Views Left Nadia Franklin ra; Final Notes: (XR Knee 3 Views Left) Reason For Exam: left knee pain XR Knee 3 Views Left EXAMINATION: XR Knee 1 or 2 Views Right, XR Knee 3 Views Left CLINICAL HISTORY: M25.562: Pain in left knee; M25.562: Pain in left knee; L knee pain COMPARISON: August 01, 2021 FINDINGS: There are operative changes related to left primary total knee arthroplasty. Femoral and tibial components are aligned for normal articulation without hardware complication. There is no knee effusionor evidence of an ossified intra-articular loose body. Bone and extra-articular soft tissue contours are normal. On the AP view there is moderate osteoarthritis of the right knee with progressive lateral compartment joint space narrowing in comparison to the previous study of August 01, 2021 IMPRESSION: Left primary total knee arthroplasty without complication Moderate osteoarthritis of the right knee with progressive lateral compartment joint space narrowing since August 01, 2021 Workstation ID: [id number] Final Dictated by:MD Alva Timothy J Dictated DT/TM:10/30/2023 10:44 Signed by:MD Alva Timothy J Signed (Electronic Signature):10/30/2023 10:43 * Exam Date Time Procedure Performing Provider Status 10/30/23 10:37 AM XR Knee 1 or 2 Views Right Evelyn Franklin; Final Notes: (XR Knee 1 or 2 Views Right) Reason For Exam: L knee pain XR Knee 1 or 2 Views Right EXAMINATION: XR Knee 1 or 2 Views Right, XR Knee 3 Views Left CLINICAL HISTORY: M25.562: Pain in left knee; M25.562: Pain in left knee; L knee pain COMPARISON: August 01, 2021 FINDINGS: There are operative changes related to left primary total knee arthroplasty. Femoral and tibial components are aligned for normal articulation without hardware complication. There is no knee effusionor evidence of an ossified intra-articular loose body. Bone and extra-articular soft tissue contours are normal. On the AP view there is moderate osteoarthritis of the right knee with progressive lateral compartment joint space narrowing in comparison to the previous study of August 01, 2021 IMPRESSION: Left primary total knee arthroplasty without complication Moderate osteoarthritis of the right knee with progressive lateral compartment joint space narrowing since August 01, 2021 Workstation ID: [id number] Final Dictated by:MD Alva Timothy J Dictated DT/TM:10/30/2023 10:44 Signed by:MD Alva Timothy J Signed (Electronic Signature):10/30/2023 10:43 Social History Social History Type Response Smoking Status Never smoked cigaret sarah Sex Female Implantable Device List Procedure Provider Procedure Date Device Type Site Unknown Unknown 04/17/23 Unknown Unknown Device Identifier Serial Number Lot or Batch Number Manufacturing Date Expiration Date Distinct Identification Code MRI Safety Implantable Status Assigning Authority Unknown Unknown [id number] Unknown 09/04/23 Unknown Unknown Active Un known Unknown Unknown [id number] a Unknown 10/10/24 Unknown Unknown Active Unknown [...] Safety Implantable Status Assigning Authority Unknown Unknown [id number] Unknown 11/16/22 Unknown Unknown Active Unknown Outpatient Note * CANDIDO Hernandez, Debora M: PERFORM Event Display: .Outpt Note Authored Date: [id number] OUTPATIENT NOTE Name: JOAQUIN CALLAWAY Patient Number:1 [id number] : 1945 Date of Service: 10/30/2023 CHIEF COMPLAINT: Left knee pain HPI: Patient is a 78-year-old female presenting for evaluation of her left knee. She underwent a left total knee arthroplasty by Dr. Lam in 2017. Over the last couple of weeks she has noticed increased left knee discomfort. She denies any injury or trauma or change in her overall activity level. Pain is generalized over the anterior aspect and reports a lightening sensation at times. Pain is fairly constant but worsened by prolonged weightbearing. She denies any associated hip or back discomfort. No lower extremity paresthesias. No sense of instability about the knee. No problems with the incision. No fever chills or night sweats. PHYSICAL EXAMINATION: Patient is alert and oriented 78-year-old female appears to be in no acute distress. She ambulates with a nonantalgic gait on the left side without use of gait aid. On examination of the left knee, well-healed anterior based knee and vision. She has some generalized tendernessto palpation with no obvious joint effusion. Left knee range of motion is 0-110, stable in extension but some medial lateral laxity in mid flexion. Painless passive range of motion about the left hip, well-maintained throughout motion. Negative Stinchfield test. Left lower extremity strength is otherwise intact. IMAGING: Left knee radiographs reviewed revealing stable left total knee arthroplasty without evidence of hardware complication. IMPRESSION: Left knee pain x 2 weeks PLAN: Quite hide patient presents for evaluation of 2-week history of left knee discomfort about her left total knee arthroplasty. I would like to obtain some baseline inflammatory markers to rule out infection. Exam and radiographs are otherwise unremarkable. Will trial some physical therapy if and laboratory markers are normal and I will have her follow-up with Dr. Lam thereafter in about 6 to 8 weeks. Should she have any new or worsening symptoms in the interim she will call our office. She may use [id number] pain relievers in the meantime. All questions answered. Electronic Signature on File Electronically Reviewed/Signed by: Debora Hernandez PA-C Author Signature Dt/Tm:11/01/2023 02:27 PM Division of Orthopaedics [facility] Patient Care team information Care Team Personnel Name: MD Aparicio Tamar Position: Referring Member Role: Primary Care Provider Address: Address: [address] [place] [address], [place] [address] Care Team Related Persons Name: DUNCAN CALLAWAY Address: home [address] [place] [address], [phone]
--- OUTSIDE RECORDS SUMMARY | 2024-03-04 14:45 | External Medical Summary | Continuity of Care Document ---
Author Name Unknown Organization [facility] [address] [place] [address] DIANE MALDONADO [phone] Care Team Providers Care Deputy Insurance Commissioner Name Role Phone Dee Aparicio Primary Care Physician [phone] [id number] Date(s): 10/30/23 - 10/30/23 [facility] [address] [facility] [address], [address], [address] DIANE [id number] [phone] Encounter Diagnosis Hepatic steatosis(Discharge Diagnosis) - 10/31/23 Discharge Disposition: Home or Self Care Attending Physician: MD Franks Jonathan Gibson Referring Physician: MD Nelda, Chasity Coffman Allergies, Adverse Reactions, Alerts Substance Reaction Severity Status Morphine Sulfate n/v Mild Active codeine nausea vomiting Active oxyCODONE nausea Active Percocet n/v Active Tape reddness Active Darvocet-N 100 nausea vomiting Active Medications Cathy Start: 10/29/22 15:10:00 EST, [...] Daily, Disp# 90 tab, Refills: 3, Pharmacy: [facility] Start Date: 09/02/23 Status: Ordered magnesium [...] TAKE 1 CAPSULE BY MOUTH DAILY, Pharmacy: [facility] Start Date: 04/01/23 Status: Ordered potassium [...] qhs, Disp# 90 tab, Refills: 3, Pharmacy: [facility] Start Date: 04/01/23 Status: Ordered Tylenol [...] female Confirmed Active Weight disorder Confirmed Active 89513. Requires pap smears until 202708/06/10- left nipple exploration and excision Diagnosis Diagnosis Type Effective Dates Health Status Cl inical Service Informant Hepatic steatosis Discharge Diagnosis 10/31/23 Non-Specified Procedures Procedure Date Related Diagnosis Body [...] Safety Implantable Status Assigning Authority Unknown Unknown [id number] Unknown 09/04/23 Unknown Unknown Active Un known Unknown Unknown [id number] Unknown 10/10/24 Unknown Unknown Active Unknown [...] Safety Implantable Status Assigning Authority Unknown Unknown [id number] 0 Unknown 11/16/22 Unknown Unknown Active Unknown Radiology * MARIA DE JESUS Samuels, Lizet Andino: DEISI Franks MD, Nima Parikh: MODIFY Event Display: Fibroscan Report Authored Date: [id number] Fibroscan Report Name: JOAQUIN CALLAWAY Patient Number: [id number] : 1945 Date of Service: 10/30/2023 Welt Drawer: Lizet Samuels Ordering Provider: CHASITY LUTZ MD Indication: R93.2 AST value: 27 ALT value: 19 Alcohol intake: NONE NPO: SINCE 9:15 THIS MORNING WT: 103.5 KG BMI: 41 Findings: Liver Steatosis: Median CAP (dB/m): 303 Consistent with Grade 1 steatosis Liver Stiffness Measurement: Median E (kPa): 4.0 E IQR: 17% Consistent with Stage 0-1 Fibrosis FAST Score: 0.15 Interpretation: 1. Mild hepatic steatosis without significant liver fibrosis 2. Low likelihood of "at-risk" MASH Nima Franks MD MSc, FACP steel erecting pusher and [employer] Division of Gastroenterology & Hepatology [facility] Electronic Signature on File CC: Chasity Lutz MD [address] [place] [address] [address] [facility] [address] Electronically Reviewed/Signed by: Lizet Samuels Author Signature Dt/Tm:10/30/2023 02:48 PM Electronically Reviewed/Signed by: Nima Franks MD, MSC, FACP Cosigner Signature Dt/Tm: 10/31/2023 09:21 AM [employer] Service Team Member, [facility] Liver Email Marketer of Research, [facility] steel erecting pusher and [employer] [facility] Patient Care team information Care Team Personnel Name: MD Aparicio Tamar Position: Referring Member Role: Primary Care Provider Address: Address: [address] [place] [id number] Care Team Related Persons Name: DUNCAN CALLAWAY Address: home [address] [place] [address], [phone]
--- OUTSIDE RECORDS SUMMARY | 2024-03-04 14:45 | External Medical Summary | Continuity of Care Document ---
Author Name Unknown Organization [address] Address [address] [facility] [address] [facility] DIANE LEAL [id number] Care Team Providers Care Clerical Warehouseman Name Role Phone Dee Aparicio Primary Care Physician [phone] Encounter [facility] [id number] Date(s): 12/20/23 - 12/20/[address] [place] [facility] [address] [facility], [facility] [address] [phone] Encounter Diagnosis Body mass index [BMI] 39.0-39.9, adult(Discharge Diagnosis) - 12/20/23 Afib(Discharge Diagnosis) - 12/20/23 S/P ablation of atrial fibrillation(Discharge Diagnosis) - 12/20/23 Discharge Disposition: Home or Self Care Attending Physician: MD Owens Sarah Referring Physician: MD Owens Sarah Allergies, Adverse Reactions, Alerts Substance Reaction Severity Status codeine nausea vomiting Active oxyCODONE nausea Active Percocet n/v Active Tape reddness Active Darvocet-N 100 nausea vomiting Active Morphine Sulfate n/v Mild Active Assessment and Plan Extracted from: Title:Cardiology Office Visit Note Author:MEL Appiah Theresa Date:12/20/23 Afib 1.Paroxysmalatrial fibrillation EKG today shows NSR.S he reports feeling palpitations about twicea week lasting a few seconds to minutes and occasionally lightheaded with it. Since the ablation thoughoverall, she has been feeling better as she used to feel very sick when she was in atrial fibrillation and end up in the ER from it. - Reassurance given as she has improved in her symptoms overall. If she notices any increase frequency or intensity, we did advise her that a monitoring engineer can be arranged at [place] for further monitoring.Dr. Boss also stopped in to speak with her. - Continue on metoprolol succinate 25 mg daily. - Continue onXarelto 20 mg dailyto decrease risk of thromboembolic events. - She can continue to follow with Dr. Alex in [place] 2. senior care anticoagulation Continue on Xarelto 20 mg daily for thromboembolic prophylaxis. Denies any adverse bleeding. 3. Pre Op Cardiac Risk Stratification She is able to walk up a flight of stairs. Now that she is beyond her 3 month post ablation procedure, she can hold her anticoagulation for surgery. The risk of adverse events such as stroke or other thromboembolic events while off anticoagulation for a short period of time, is low. Anticoagulation may be resumed post operatively when deemed safe by the surgeon. From an arrhythmiastandpoint, she is low risk for her proposed surgical procedure. Will also have Dr. Alex weigh in on her risk stratification. I personally spent 35 minutes with this patient including reviewing medication record, face to face encounter and dictation of this note. This note was completed utilizing [employer]ig[employer] speech recognition software. Grammatical errors, random word insertions, pronoun errors, or incomplete sentences may persist as consequences of this system. Please feel free to contact me if you have any questions. Medications Cathy Start: 10/29/22 15:10:00 EST, 30 [...] q12h, Disp# 60 tab, Refills: 1, Pharmacy: [facility] Start Date: 09/19/23 Stop Date: 11/18/23 Status: Ordered Fish Oil 1000 mg oral capsule Start: 12/17/17 15:06:00, 3 cap, PO, Daily Start Date: 12/17/17 Status: Ordered furosemide 20 mg oral tablet Start: 09/02/23 9:27:00 EDT, 1 tab, PO, Daily, Disp# 90 tab, Refills: 3, Pharmacy: [facility] Start Date: 09/02/23 Status: Ordered magnesium [...] kit, Refills: 0, Follow Endoscopy intrructions, Pharmacy: [facility], Earliest Fill Date: 06/28/23 Start [...] Start Date: 07/12/20 Status: Ordered Mental Status 12/20/23 Barriers to Learning one year Vision imp airment, Other: wears glasses Mandatory Health Literacy Documentation Yes Health Literacy Communication Barriers N ever Primary Language Khmer Problem List Condition Confirmation Course Effective Dates [...] female Confirmed Active Weight disorder Confirmed Active 03067. Requires pap smears until 202708/06/10- left nipple exploration and excision Diagnosis Diagnosis Type Effective Dates Health Status Clinical Service Informant Body mass index [BMI] 39.0-39.9, adult Discharge Diagnosis 12/20/23 Non-Specified Afib Discharge Diagnosis 12/20/23 Non-Specified S/P ablation of atrial fibrillation Discharge Diagnosis 12/20/23 Non-Specified Procedures Procedure Date Related Diagnosis Body [...] 2spinal surgery 3Left total knee arthroplasty. 4CIN2 Vital Signs Most recent to oldest [Reference Range]: 1 Height 160 cm (12/20/23 2:43 PM) Patient Weight 101.4 kg (12/20/23 2:43 PM) Body Mass Index 39.61 kg/m2 (12/20/23 2:43 PM) Heart Rate 71 bpm (12/20/23 2:43 PM) Blood Pressure 140/74mmHg (12/20/23 2:43 PM) Cuff Pulse Pressure 66 mmHg (12/20/23 2:43 PM) BP Location # 1 Right Arm (12/20/23 2:43 PM) Social History Social History Type Response Smoking Status Never smoked cigaret sarah Sex Female Implantable Device List Procedure Provider Procedure Date Device Type Site Unknown Unknown 04/17/23 Unknown Unknown Device Identifier Serial Number Lot or Batch Number Manufacturing Date Expiration Date Distinct Identification Code MRI Safety Implantable Status Assigning Authority Unknown Unknown [id number] Unknown 09/04/23 Unknown Unknown Active Un known Unknown Unknown [id number] Unknown 10/10/24 Unknown Unknown Active Unknown [...] Safety Implantable Status Assigning Authority Unknown Unknown [id number] Unknown 11/16/22 Unknown Unknown Active Unknown Radiology * Contributor_system, MUSE01: VERIFY, PERFORM Event Display: EKG Authored Date: [id number] Please click on link to see image. Cardiology Outpatient Note * MEL Appiah Theresa: PERFORM, MODIFY, MODIFY Event Display: Cardiology Outpt Note Authored Date: [id number] Primary Care Provider MD Markus, Dee Referring Provider MD Roman, uRla Chief Complaint Post op, pt c/o palps History of Present Illness Ms. Callaway is a pleasant 78year old femalewith a history of paroxysmalAtrial fibrillation s/p left atrial PVI ablation and CTI for dependent flutter (08/2023), chronic diastolic dysfunction, chronic non cardiac edema and severe COPD tolerating CPAP and hiatal hernia who is an established patient of Dr. Owens presenting to EP clinic today for follow from her ablation. PND. She also follows with Dr. Alex and was seen and reported feeling significantly better following her ablation and no palpitations. Today, she reports feeling palpitations about twicea week lasting a few seconds to minutes and occasionally lightheaded with it. Since the ablation thoughoverall, she has been feeling better as she used to feel very sick when she was in atrial fibrillation and end up in the ER from it. She would like to undergo hiatal surgery and needs cardiac risk stratification. Review of Systems A 10 point ROS was completed and all other systems are negative except for what is noted in the HPI. Physical Exam Vitals & Measurements HR:71(Monitored) BP:140/74 SpO2:99% HT:160cm WT:101.4kg WT:101.400kg(Dosing) BMI:39.61 BMI:39.61 kg/m2 General: NAD. HEENT: Symmetric, atraumatic. Neck: No JVD. CV:RRR,no audible murmur. Pulm: Respirations even and unlabored. Lungs clear to auscultation bilaterally. No rales, wheezing or rhonchi. Abd: Abdomen soft, non-tender and non-distended with BS audible x 4. Extremities: No edema, pulses palpable. Skin: Warm and dry to touch. Neuro: Awake, alert and orientated x 3. Assessment/Plan Afib 1.Paroxysmalatrial fibrillation EKG today shows NSR.She reports feeling palpitations about twicea week lasting a few seconds to minutes and occasionally lightheaded with it. Since the ablation thoughoverall, she has been feeling better as she used to feel very sick when she was in atrial fibrillation and end up in the ER from it. - Reassurance given as she has improved in her symptoms overall. If she notices any increase frequency or intensity, we did advise her that a monitoring engineer can be arranged at [place] for further monitoring.Dr. Boss also stopped in to speak with her. - Continue on metoprolol succinate 25 mg daily. - Continue onXarelto 20 mg dailyto decrease risk of thromboembolic events. - She can continue to follow with Dr. Alex in [place] 2. joint terminal attack controller anticoagulation Continue onXarelto 20 mg daily for thromboembolic prophylaxis. Denies any adverse bleeding. 3. Pre Op Cardiac Risk Stratification She is able to walk up a flight of stairs. Now that she is beyond her 3 month post ablation procedure, she can hold her anticoagulation for surgery. The risk of adverse events such as stroke orother thromboembolic events while off anticoagulation for a short period of time, is low. Anticoagulation may be resumed post operatively when deemed safe by the surgeon. From an arrhythmiastandpoint, she is low risk for her proposed surgical procedure. Will alsohave Dr. Alex weigh in on her risk stratification. I personally spent 35 minutes with this patient including reviewing medication record, faceto face encounter and dictation of this note. This note was completed utilizing Wigix speech recognition software. Grammatical errors, random word insertions, pronoun errors, or incomplete sentences may persist as consequences of this system. Please feel free to contact me if you have any questions. Problem List/Past Medical History Ongoing Afib ALLERGIC RHINITIS Apnea, sleep Arthritis of right shoulder region Atrial fibrillation Chronic osteoarthritis ZHEN II (cervical intraepithelial neoplasia II) Conversion type COVID-19 vaccine series completed Delayed emergence from anesthesia Epidermal cyst Exploration of nipple Eye fluid H/O: arthritis H/O: back problem Hepatic steatosis Hiatal hernia History of reverse total replacement of right shoulder joint History of total right hip arthroplasty HYPERTENSION Knee pain, left Nail dystrophy Nipple discharge symptom Nocturia more than twice per night Osteoarthritis of right glenohumeral joint Pilar cyst PONV (postoperative nausea and vomiting) Preop examination Retained orthopedic hardware S/P ablation of atrial fibrillation Seborrheic keratoses Seborrheic keratosis Sleep apnea SOB - Shortness of breath Urge incontinence Urinary incontinence in female Urinary urgency Weight disorder Historical Bronchitis Heartburn Pneumonia SHINGLES Thyroid disorder Procedure/Surgical History Excision (11/22/2022)Cardioversion (2022)UDS - Urodynamics (06/27/2022)Surgery (12/22/2020)Vaginal hysterectomy (12/09/2019)Uterosacral ligament (12/09/2019)Sling procedure of bladder neck (12/09/2019)Posterior colporrhaphy (12/09/2019)Cystourethroscopy (12/09/2019)cardioversion (2018)left total knee arthroplasty (08/19/2017)Hip arthroplasty right total (02/27/2016)Colonoscopy (03/31/2015)Bilateral cataracts (2014)LEEP procedure of cervix (2007)right breast palanoma removal (2006) carpal tunnel - right hand (01/2000) D&C - Dilatation andcurettage, multiple (1999)cervical spine surgery (1999)carpal tunnel surgery left hand (02/1999)lumbar surgery - instrumentation - laminectomy (1998)esophagus - hyatal hernia remaval (03/11 99)gallbladder removal (03/1995)Tubal ligation (1979) Medications acetaminophen(Tylenol), 325 mg, PO, q4h amoxicillin(amoxicillin 500 mg oral capsule), 2000 mg= 4 cap, PO, As indicated, 3 refills ascorbic acid(Vitamin C 500 mg oral tablet, chewable), 1000 mg= 2 tab, PO, tid calcium and vitamin D combination(Calcium 600+D), 1 tab, PO, bid cetirizine(ZyrTEC 10 mg oral tablet), 10 mg= 1 tab, PO, Daily chlorhexidine topical(chlorhexidine 0.12% oral rinse), 0.018 g= 15 mL, PO, Daily cholecalciferol(Vitamin D3 2000 intl units oral tablet), 2000 Int_Unit= 1 tab, PO, Daily chondroitin/glucosamine/methylsulfonylme(chondroitin/glucosamine/methylsulfonylm ethane), 1 tab, PO,bid cinnamon(cinnamon 500 mg oral capsule), 3000 mg= 6 cap, PO, Daily collagen topical(collagen topical powder) cyanocobalamin(Vitamin B12), PO, Daily diflunisal(diflunisal 500 mg oral tablet), 500 mg= 1 tab, PO, q12h, 1 refills fexofenadine(Cathy), 30 mg, PO, Daily furosemide(furosemide 20 mg oral tablet), 20 mg= 1 tab, PO, Daily, 3 refills lidocaine topical(Aspercreme with Lidocaine), See Instructions magnesium amino acids chelate(magnesium amino acids chelate 100 mg oral tablet), 200 mg= 2 tab, PO,bid metoprolol(Toprol-XL 25 mg oral tablet, extended release), 25 mg= 1 tab, PO, qhs, 3 refills multivitamin(Vitamin B Complex oral capsule), 1 cap, PO, Daily multivitamin, 1 tab, PO, Daily ocular lubricant(Systane Balance ophthalmic solution), 2 drop, both eyes, tid, PRN olmesartan(Benicar 20 mg oral tablet), 40 mg= 2 tab, PO, Daily, 3 refills omega-3 polyunsaturated fatty acids(Fish Oil 1000 mg oral capsule), 3000 mg= 3 cap, PO, Daily omeprazole(omeprazole 20 mg oral delayed release capsule), See Instructions, 3 refills polyethylene glycol 3350 with electrolytes(NuLYTELY with Flavor Packs oral powder for reconstitution), See Instructions potassium ACETATE, 1 tab, PO rivaroxaban(rivaroxaban 20 mg oral tablet), 20 mg= 1 tab, PO, qPM unknown medication vitamin E(vitamin E 400 intl units oral capsule), 400 Int_Unit= 1 cap, PO, Daily Allergies Morphine Sulfate (Mild)n/v Darvocet-N 100nausea, vomiting Percocetn/v Tapereddness codeinenausea, vomiting oxyCODONEnausea Social History Smoking Status Never smoked cigarettes Alcohol - Denies Alcohol Use Substance Abuse - Denies Substance Abuse Tobacco Use:Never smoker Family History Diabetes: Mother and Sister. Heart Failure: Sister. Heart attack: Brother. Leukemia: Brother. Health Status Family Member(s) Electronic Signature on File CC: Rula Owens MD [address] [facility] [id number] Electronically Reviewed/Signed by: MEL Wong Author Signature Dt/Tm:12/20/2023 04:01 PM Division of Electrophysiology TM Patient Care team information Care Team Personnel Name: MD Aparicio Tamar Position: Referring Member Role: Primary Care Provider Address: Address: [address] [place] [id number] [place] Care Team Related Persons Name: DUNCAN CALLAWAY Address: home [address] [place] [address], [phone]
--- NOTE | 2024-03-04 15:55 | XCELERA ---
[id number] \\[email or web address]\[id number]
--- NOTE | 2024-03-04 16:20 | Electrocardiogram Report ---
Test Reason : Blood Pressure : / mmHG Vent. Rate : 087 BPM Atrial Rate : 087 BPM P-R Int : 210 ms QRS Dur : 104 ms QT Int : 380 ms P-R-T Axes : 074 030 042 degrees QTc Int : 457 ms Sinus rhythm with 1st degree A-V block Otherwise normal ECG When compared with ECG of 14-NOV-2019 21:39, Premature ventricular complexes are no longer Present Confirmed by Robles Hein ([id number]) on 03/04/2024 4:19:37 PM Referred By: REFERRED SELF Confirmed By:Robles Hein
--- NOTE | 2024-03-04 16:22 | Electrocardiogram Report ---
Test Reason : Blood Pressure : / mmHG Vent. Rate : 062 BPM Atrial Rate : 062 BPM P-R Int : 198 ms QRS Dur : 104 ms QT Int : 422 ms P-R-T Axes : 085 016 008 degrees QTc Int : 428 ms Normal sinus rhythm Normal ECG When compared with ECG of 04-MAR-2024 03:06, (unconfirmed) Nonspecific T wave abnormality now evident in Inferior leads Confirmed by Robles Hein ([id number]) on 03/04/2024 4:22:00 PM Referred By: REFERRED SELF Confirmed By:Robles Hein
--- NOTE | 2024-03-04 16:33 | History & Physical Report ---
Date of Service March 04, 2024 Assessment & Plan (1) Chest pain: Plan: Palpitationsseemed most consistent with arrhythmiahas a history of A-fib. Ruled out atypical angina with reassuring EKG, negative troponins, negative stress echo. After discussion with her primary cardiologistincrease metoprolol to 50 mg at bedtime. Safe/stable for home. Admission and Anticipated Discharge Date Admission Date: March 04, 2024 History of Present Illness Chief Complaint: Palpitations Primary Care Provider: Dee Aparicio MD Patient is a very pleasant 78-year-old female who presented with about an hour of palpitations. She notes she was about to go to bed, she was cleaning, and she felt a little like she might of overdone it. Then had a very abrupt onset of palpitations feeling her heart pounding in her chest with some associated nausea pounding in her ears and a little bit of dyspnea. She laid down but the symptoms did not pass, she checked her blood pressure which was elevated and her cuff showed a heart rate of 120, she then decided since it was not getting better going away she should come to the hospital. On her way into the hospital, the symptoms abated almost suddenly as they came on, and shortly after she was here she more or less felt back to normal. Allergies Allergy/AdvReac Type Severity Reaction Status Date / Time adhesive Allergy Mild redness/swe Verified 08/20/23 15:31 lling codeine Allergy Mild vomiting Verified 08/20/23 15:31 morphine Allergy Mild Vomiting Verified 08/20/23 15:31 adhesive tape Allergy Verified 08/20/23 15:31 Home Medications Medication Instructions Recorded Confirmed Type ascorbic acid (vitamin C) 1,000 mg 1,000 mg PO TID 03/12/19 03/04/24 History tablet,extended release (Vitamin C ER) calcium carbonate 600 mg-vitamin 1 tab PO BID 03/12/19 03/04/24 History D3 20 mcg (800 unit) tablet (Caltrate with Vitamin D3) chlorhexidine gluconate 0.12 % 15 ml PO HS 03/12/19 03/04/24 History mouthwash cholecalciferol (vitamin D3) 50 2,000 unit PO DAILY 03/12/19 03/04/24 History mcg (2,000 unit) capsule (Vitamin D3) chondroitin sulfate A sodium 400 1,200 mg PO BID 03/12/19 03/04/24 History mg capsule cinnamon bark 500 mg capsule 1,000 mg PO TID 03/12/19 03/04/24 History (Cinnamon) glucosamine sulfate 500 mg tablet 1,500 mg PO BID 03/12/19 03/04/24 History (Glucosamine) lidocaine HCl 4 % topical cream 1 applic topical BID PRN Pain 03/12/19 03/04/24 History (Aspercreme (lidocaine HCl)) multivitamin 1 tab PO DAILY 03/12/19 03/04/24 History omega 6-nij-xig-fish oil 1,000 mg 1 cap PO DAILY 03/12/19 03/04/24 History (120 mg-180 mg) capsule (Fish Oil) omeprazole 20 mg capsule,delayed 20 mg PO DAILY 03/12/19 03/04/24 History release propylene glycol 0.6 % eye drops 1 drp ophthalmic (eye) BID PRN Dry 03/12/19 03/04/24 History (Systane Balance) Eyes psyllium husk 3.4 gram/5.4 gram 2 tbsp PO HS 03/12/19 03/04/24 History oral powder (Metamucil) rivaroxaban 20 mg tablet (Xarelto) 0 mg PO UD 03/12/19 03/04/24 History vitamin B complex 1 cap PO DAILY 03/12/19 03/04/24 History vitamin E 268 mg (400 unit) capsule 400 unit PO DAILY 03/12/19 03/04/24 History hydrochlorothiazide 12.5 mg capsule 0 mg PO UD 11/14/19 03/04/24 History olmesartan 20 mg tablet 40 mg PO DAILY 09/22/20 03/04/24 History ondansetron HCl 4 mg tablet 4 mg PO QID PRN nausea and 01/03/23 03/04/24 Rx vomiting #30 tabs tramadol 50 mg tablet See Rx Instructions PO Q6H PRN 01/16/23 03/04/24 Rx pain #90 tabs Lift Chair #1 ea 08/21/23 08/21/23 Rx meloxicam 7.5 mg tablet 7.5 mg PO DAILY #30 tabs 12/06/23 03/04/24 Rx furosemide 20 mg tablet 20 mg PO DAILY 03/04/24 03/04/24 History metoprolol succinate 25 mg 50 mg (2 x 25 mg) PO HS #60 tabs 03/04/24 Rx tablet,extended release 24 hr Past Med/Surg History Medical History Afib Allergic rhinitis Arthralgia of multiple sites Atrial fibrillation Atrial flutter Benign polyp of large intestine Chronic anticoagulation Chronic right hip pain Demand ischemia of myocardium Diverticulosis of colon Encounter for annual routine gynecological examination GERD (gastroesophageal reflux disease) Hiatal hernia History of abnormal mammogram HTN (hypertension) HTN (hypertension) Hyperlipidemia Irritable bowel syndrome Lumbosacral radiculopathy at L4 Moderate cervical dysplasia Neuropathic pain, leg, bilateral Non-smoker Obesity Obstructive sleep apnea Polyneuropathy Rectocele Sleep apnea Spinal stenosis Trigeminal neuralgia Tubular adenoma of colon Umbilical hernia Varicella Vitamin D deficiency Vocal cord polyp Surgical History H/O colonoscopy H/O oral surgery H/O: hysterectomy History of back surgery History of cardioversion History of loop electrical excision procedure (LEEP) Hx of cataract surgery S/P cholecystectomy S/P dilation and curettage S/P hip replacement S/P tubal ligation Family History Sister Hemorrhagic stroke Colorectal cancer Coronary heart disease Mother Hemorrhagic stroke Denies family history of Ovarian cancer Breast cancer Social History Smoking Status: Never smoker Second Hand Exposure: No; Do You Dip or Chew Tobacco: No; Hx Alcohol Use: No Hx Substance Use: No Preferred Language: Mohawk Communication Ability: Effective [employer] Required: No Beliefs That Will Affect Care: None marital status: Current Living Situation: Parent current occupational status: retired How many Children do You have: 2 Other Information That Helps Us Care for You: No Feels Safe at Home: Yes Safety Concerns: Feels Safe At This Time Childhood Exposure to Second-Hand Smoke: No Diet: regular caffeine: No Dental Care, Regularly: Yes Physical Activity Frequency: Does not Exercise Seatbelt Use: always Sunscreen Use: Yes Assistive Devices: CPAP Physical Exam Physical Exam: General she is awake and alert pleasant no distress. HEENT normocephalic atraumatic mucous membranes moist. Breathing unlabored no accessory muscle use good effort. Skin shows no rashes no pallor or icterus. Neuro without focal deficits. EKG, troponins, stress test noted. Results & Data Results & Data Vital Signs (Past 12 Hours) Vital Signs Temp Pulse Pulse Resp BP BP Pulse Ox 03/04/24 15:25 98.4 F 56 L 18 157/76 H 98 03/04/24 13:34 56 L 18 159/93 H 98 03/04/24 10:30 62 18 159/84 H 99 03/04/24 10:01 67 12 181/94 H 93 03/04/24 09:31 98.4 F 79 18 98 03/04/24 09:27 03/04/24 09:20 75 24 98 03/04/24 08:00 62 15 154/93 H 97 03/04/24 07:30 61 16 143/85 H 96 03/04/24 07:09 61 03/04/24 07:01 63 19 159/78 H 97 03/04/24 06:40 65 23 97 03/04/24 06:34 67 15 97 03/04/24 06:20 65 14 95 03/04/24 06:10 66 19 98 03/04/24 06:00 148/79 H 03/04/24 06:00 70 16 97 03/04/24 06:00 67 18 148/79 H 97 03/04/24 05:50 70 15 96 03/04/24 05:40 69 16 98 03/04/24 05:30 134/83 03/04/24 05:30 67 22 99 03/04/24 05:29 133/95 03/04/24 05:29 70 17 99 03/04/24 05:20 71 18 100 03/04/24 05:10 71 22 100 03/04/24 05:00 75 23 99 03/04/24 05:00 72 17 133/95 99 03/04/24 04:50 77 14 100 03/04/24 04:40 75 20 99 03/04/24 04:30 76 16 97 Pulse Ox O2 Del Method O2 Del Method 03/04/24 15:25 03/04/24 13:34 Room Air 03/04/24 10:30 Room Air 03/04/24 10:01 03/04/24 09:31 Room Air 03/04/24 09:27 98 Room Air 03/04/24 09:20 Room Air 03/04/24 08:00 Room Air 03/04/24 07:30 Room Air 03/04/24 07:09 03/04/24 07:01 Room Air 03/04/24 06:40 03/04/24 06:34 03/04/24 06:20 03/04/24 06:10 03/04/24 06:00 03/04/24 06:00 03/04/24 06:00 Room Air 03/04/24 05:50 03/04/24 05:40 03/04/24 05:30 03/04/24 05:30 03/04/24 05:29 03/04/24 05:29 03/04/24 05:20 03/04/24 05:10 03/04/24 05:00 03/04/24 05:00 Room Air 03/04/24 04:50 03/04/24 04:40 03/04/24 04:30 Code Status & VTE Plan VTE Prophylaxis Plan VTE Prophylaxis will be ordered: Yes PG Care Time/CCT Total # of Minutes Spent Total Time Spent with Patient: Total time spent is greater than 50% in coordination of care (as documented) at patient's floor/unit and/or counseling patient: Coding Level of Care Code None Diagnoses Chest pain R07.9 Chest pain type: unspecified (1) Chest pain Chest pain type: unspecified Qualified Code(s): R07.9 - Chest pain, unspecified
--- NOTE | 2024-03-04 16:35 | Billing Data ---
Date of Service March 04, 2024 Coding Level of Care Code INP/OBS EV SAME DAY LV 3,85MIN
[2024-03-04] MEDS ORDERED: RIVAROXABAN 15 MG TAB PO SCH (21:00)
[2024-03-04] MEDS ORDERED: PSYLLIUM or GUAR GUM FIBER 4GM PACKET PO SCH (21:00)
[2024-03-04] MEDS ORDERED: RIVAROXABAN 20 MG TAB PO SCH (21:00)
== END 2024-03-04 15:30 | disposition home or self-care (01) ==
LOC: EDINP 02:54 → ED 02:54 → EDINP 15:41